=== PATIENT | male | born 1950 | race Caucasian/White ===

== ENCOUNTER 2016-09-02 10:32 | Inpatient (IN) | payer OTHER ==
[2016-09-02] VITALS (10 sets, daily range): BP systolic 136–186; BP diastolic 83–107; PULSE 65–78; RESP 19–25; O2SAT 79–92
[~2016-09-02] VITALS: Ht 165.1 cm; Wt 119.5 kg
--- NOTE | 2016-09-02 10:44 | ED.REPORT ---
HPI-Dyspnea / Wheezing Date of Service Sep 02, 2016 ED Provider: Christy Messina MD This is a 66 year old male with a history of DM, HTN, and COPD presenting to the emergency department due to dyspnea that began 2 weeks ago. Spouse reports decreased SpO2 in the 70s and 80s in the last two weeks. Saturation increases slightly if the patient is non-ambulatory but drops with even minimal exertion. Yesterday he began hallucinating with increased confusion which prompted their ED visit today. Denies chest pain, cough, fever, chills, nausea, vomiting cough , abdominal pain, bowel or bladder changes, or headache at this time. Recently on prednisone. Nursing Notes Stated Complaint: POSSIBLE LOW OXYGEN/SENT FROM [place] Chief Complaint: Respiratory Distress Nursing Notes Reviewed: Yes Allergies: Coded Allergies: Sulfa (Sulfonamide Antibiotics) (Verified Allergy, Unknown, 09/02/16) Scheduled Brimonidine Tartrate (Brimonidine 0.2% Oph Soln) 5 Ml Drops 1 DROP BOTH_EYES TID Fluocinonide 0.05% Oint (Fluocinonide 0.05% Oint) 15 Gm Oint...g. 1 APPLIC TOPICAL BID Fluoxetine (Fluoxetine) 20 Mg Capsule 20 MG PO DAILY Gabapentin (Gabapentin) 300 Mg Capsule 300 MG PO BID Insulin Aspart (NovoLOG U-100 Pen) 100 Unit/Ml Insuln.pen 18 UNITS SUBQ TIDWM Insulin Glargine (Lantus U100 Insulin Vial) 100 Unit/Ml Vial 65 UNIT SUBQ HS Ipratropium [place] (Atrovent HFA) 200 Puff/12.9 Gm Inhaler 2 PUFF INH BID Lisinopril (Lisinopril) 40 Mg Tablet 40 MG PO DAILY Loratadine (Claritin) 10 Mg Capsule 10 MG PO DAILY Metoprolol Succinate ER (Metoprolol Succinate ER) 100 Mg Tab.er.24h 150 MG PO DAILY Simvastatin (Simvastatin) 40 Mg Tablet 40 MG PO HS Spironolactone (Spironolactone) 50 Mg Tablet 50 MG PO DAILY Scheduled PRN Albuterol HFA (Proair HFA) 8.5 Gm Hfa.aer.ad 1-2 PUFFS INHALATION Q4H PRN PRN For Shortness of Breath Cetirizine HCl (Zyrtec) 10 Mg Capsule 10 MG PO DAILY PRN PRN allergies Temazepam (Temazepam) 15 Mg Capsule 15 MG PO HS PRN PRN For Insomnia Tramadol (Tramadol) 50 Mg Tablet 50 MG PO TID PRN PRN For Pain General Time Seen by MD: 10:44 Chief Complaint Shortness of breath Hx Obtained From: Patient Arrived By: Walk-in Sudden in Onset?: Yes Onset Occurred: More than a week ago... (2 weeks) Symptom Duration: Since onset Severity: Current: No pain currently Pertinent Negative: Pt denies other symptoms Recent Healthcare: No recent doctor visit, No recent hospitalization Similar Sx Previous: No Past Medical History Past Medical History Notes: Code, DNI Past Medical History Glaucoma Hx pneumonia Reports: COPD, Diabetes mellitus, Hypertension Past Surgical History Denies Smoking History Former Smoker Ambulatory Status Independent Review of Systems Constitutional: Denies: Chills, Fever Respiratory: Reports: Non-productive cough, Shortness of breath Cardiovascular: Denies: Chest pain Musculoskeletal: Denies: Back pain Skin: Denies Diaphoresis Complete sys rev & neg: except as marked. GI: Denies: Abdominal pain, Nausea, Vomiting Psychiatric: Reports: Confusion Physical Exam Initial Vital Signs Vital Signs (First) Date Time Temp Pulse Resp B/P Pulse Ox O2 Delivery O2 Flow Rate FiO2 09/02/16 10:41 36.5 69 20 168/107 79 Room Air 09/02/16 12:45 2 Initial VS: Reviewed Head / Eyes: Atraumatic, Normocephalic, PERRL ENT: Mucous membranes moist, Conjunctiva normal, No scleral icterus Extremities: Vascular intact, Neuro intact, No tenderness Neurologic: Alert, Oriented, Nonfocal General/Constitutional: Awake Neck: Atraumatic, Supple, No meningismus, Full range of motion, No swelling, Non-tender, No masses Wheezing / Retractions: Positive: Wheeze insp/exp diffuse poor air movement Cardiovascular: Heart rate NL, Regular rhythm, Heart sounds NL Lower Ext Edema: Positive: Bilateral 1+ (with poor perfusion chronically) Abdomen: Soft, Non-tender Obese Skin: Warm, Dry Multiple rashes and skin discoloration over entire body Significantly dystrophic toe nails Interpretation & Diagnostics Lab Results Interpretation Result Diagram: 09/03/16 0240 09/03/16 0240 Test 09/02/16 11:15 Pro-B-Type Natriuretic Peptide 7362pg/mL (0-376) Procalcitonin 0.11ng/mL (0.00-0.08) ECG Interpretation ECG Interpretation: NSR at a rate of 66 Inferior infarct, old Probably anterior infarct ST minimal elevation in V1-V4 with inverted t-waves. Changed from prior on 08/2014 Time: 11:31 Interpreted by: ED physician X-Ray Chest Interpretation Chest Xray Interpretation: IMPRESSION: No acute cardiopulmonary disease. Mild diffuse pulmonary interstitial prominence. Dictated by: Glory Hoang M.D. on 09/02/2016 at 11:43 Approved by: Glory Hoang M.D. on 09/02/2016 at 11:45 Re-Eval/Medical Decision Med Decision/Clinical Course Signficant progressive dyspnea with significant hypoxia in the setting of volume overload on CXR, increased LE edema and crackles/wheeze on lung exam and eleveted proBNP with elevated Trop all suggest acute CHF with possible STEMI vs demand ischemia. Hospitalization recommended. Re-Evaluation/Progress #1: Time of Eval: 11:20 Re-Evaluation/Progress Note: Re-checked, SpO2 97% on O2. Re-Evaluation/Progress #2: Time of Eval: 12:49 Re-Evaluation/Progress Note: Discussed need for admission, all questions addressed Consultation : Referral / Consult Name: Raymundo Lovell MD Consulted With: Hospitalist Call Returned at: 13:10 Dovetailer: Accepts admit Counseled Regarding: Diagnosis, Lab results, Need for follow-up, Need for admission Discharge & Departure Impression: Primary Impression: CHF (congestive heart failure) Congestive heart failure type: unspecified congestive heart failure type Congestive heart failure chronicity: unspecified congestive heart failure chronicity Qualified Code: I50.9 - Heart failure, unspecified Additional Impressions: NSTEMI (non-ST elevated myocardial infarction) COPD exacerbation Disposition: ADMITTED TO HOSPITAL Discharge Condition All VS Reviewed: Yes Condition: Stable Referrals: OTHER,PHYSICIAN (PCP) Scribe Attestation Portions of this note were transcribed by Panchito Allen. I, Dr. Messina personally performed the history, physical exam and medical decision-making; I reviewed and confirmed the accuracy of the information in the transcribed note. Signed by: shannen Dean. 09/02/2016, 18:00. Christy Mesisna MD Sep 02, 2016 10:44 PANCHITO ALLEN Sep 02, 2016 10:51 0.6mg/dL (0.0-1.2) Aspartate Amino Transf (AST/SGOT) 19U/L (0-50) Alanine Aminotransferase (ALT/SGPT) 14U/L (0-44) Alkaline Phosphatase 164U/L (25-160) Troponin T 0.021ug/L (0.0-0.011) Pro-B-Type Natriuretic Peptide 7362pg/mL (0-376) Total Protein 7.0g/dL (6.4-8.4) Albumin 3.8g/dL (3.4-5.0) Procalcitonin 0.11ng/mL (0.00-0.08) ECG Interpretation ECG Interpretation: NSR at a rate of 66 Inferior infarct, old Probably anterior infarct ST minimal elevation in V1-V4 with inverted t-waves. Changed from prior on 08/2014 Time: 11:31 Interpreted by: ED physician X-Ray Chest Interpretation Chest Xray Interpretation: IMPRESSION: No acute cardiopulmonary disease. Mild diffuse pulmonary interstitial prominence. Dictated by: Glory Hoang M.D. on 09/02/2016 at 11:43 Approved by: Glory Hoang M.D. on 09/02/2016 at 11:45 Re-Eval/Medical Decision Re-Evaluation/Progress #1: Time of Eval: 11:20 Re-Evaluation/Progress Note: Re-checked, SpO2 97% on O2. Re-Evaluation/Progress #2: Time of Eval: 12:49 Re-Evaluation/Progress Note: Discussed need for admission, all questions addressed Consultation : Referral / Consult Name: Raymundo Lovell MD Consulted With: Hospitalist Call Returned at: 13:10 Dovetailer: Accepts admit Counseled Regarding: Diagnosis, Lab results, Need for follow-up, Need for admission Discharge & Departure Impression: Primary Impression: CHF (congestive heart failure) Congestive heart failure type: unspecified congestive heart failure type Congestive heart failure chronicity: unspecified congestive heart failure chronicity Qualified Code: I50.9 - Heart failure, unspecified Additional Impressions: NSTEMI (non-ST elevated myocardial infarction) COPD exacerbation Disposition: ADMITTED TO HOSPITAL Discharge Condition All VS Reviewed: Yes Condition: Stable Referrals: OTHER,PHYSICIAN (PCP) Scribe Attestation Portions of this note were transcribed by Panchito Hutchinson IDr. Messina personally performed the history, physical exam and medical decision-making; I reviewed and confirmed the accuracy of the information in the transcribed note. Signed by: shannen Dean. 09/02/2016, 18:00. Christy Messina MD Sep 02, 2016 10:44 PANCHITO ALLEN Sep 02, 2016 10:51
[2016-09-02] MEDS ORDERED: MethylprednisoLONE Sodium Succinate 62.5 mg/mL 2 mL Inj IVPUSH ONE (11:15)
[2016-09-02] MEDS ORDERED: Albuterol-Ipratropium 3 mL Inhalation Solution NEB ONE (11:15)
[2016-09-02] MEDS ORDERED: Azithromycin Inj 500 MG in Dextrose 5% w/Vial Mate 250 ML IV ONE (11:15)
[2016-09-02] MEDS ORDERED: cefTRIAXone Inj 2,000 MG in Dextrose 5% Minibag Plus 50 ML IV ONE (11:15)
[2016-09-02 11:27] LABS: BASOPHILS % (AUTO) 0.2 % (0-3); EOSINOPHILS % (AUTO) 5.1 % (0-5); MONOCYTES % (AUTO) 8.3 % (4-12); Mean Corpuscular Hemoglobin 30.8 pg (27.0-35.0); Mean Corpuscular Volume 99.7 fL (81-100); NEUTROPHILS % (AUTO) 68.3 % (40-74); Platelet Count 234 bil/L (150-400)
--- NOTE | 2016-09-02 11:46 | DRSVH ---
PROCEDURE: X-RAY CHEST ONE VIEW, PORTABLE ([id number]) INDICATIONS: dyspnea TECHNIQUE: One view of the chest was acquired. COMPARISON: [facility], RG, CHEST 2VW, 08/25/2004, 13:23. [facility], CR, CH EST 2VW, 09/06/2009, 14:39. FINDINGS: Surgical changes and devices: None. Lungs and pleura: No pleural effusions or pneumothorax. Lungs are clear with mild diffuse interstit ial prominence. Mediastinum: Mediastinal contours appear normal. Heart size is normal. Bones and chest wall: No suspicious bony lesions. Overlying soft tissues appear unremarkable. IMPRESSION: No acute cardiopulmonary disease. Mild diffuse pulmonary interstitial prominence. Dictated by: Glory Hoang M.D. on 09/02/2016 at 11:43 Approved by: Glory Hoang M.D. on 09/02/2016 at 11:45
[2016-09-02] MEDS ORDERED: TRAM50TA2 PO (12:08)
[2016-09-02] MEDS ORDERED: FLUO20CA25 PO (12:08)
[2016-09-02] MEDS ORDERED: METO-274 PO (12:08)
[2016-09-02] MEDS ORDERED: SPIR50TA2 PO (12:08)
[2016-09-02] MEDS ORDERED: GABA-502 PO (12:08)
[2016-09-02] MEDS ORDERED: RES15 PO (12:08)
[2016-09-02] MEDS ORDERED: ALBU8.5H2 INHALATION (12:08)
[2016-09-02] MEDS ORDERED: LISI40TA PO (12:08)
[2016-09-02] MEDS ORDERED: LORA10CA PO (12:08)
[2016-09-02] MEDS ORDERED: CETI10CA PO (12:08)
[2016-09-02] MEDS ORDERED: INSU100V7 SUBQ (12:08)
[2016-09-02] MEDS ORDERED: ATRINH INH (12:08)
[2016-09-02] MEDS ORDERED: INSU3INS3 SUBQ ×2 (12:08)
[2016-09-02] MEDS ORDERED: FLUO15OI TOPICAL (12:08)
[2016-09-02] MEDS ORDERED: BRIM5DRO9 BOTH_EYES (12:08)
[2016-09-02] MEDS ORDERED: SIMV40TA5 PO (12:08)
[2016-09-02 12:14] LABS: TROPONIN T 0.021 ug/L (0.0-0.011)
[2016-09-02] MEDS ORDERED: Furosemide 10 mg/mL 4 mL Inj IVPUSH ONE (12:35)
[2016-09-02] MEDS ORDERED: INSU100I SUBQ (13:53)
[2016-09-02] MEDS ORDERED: Albuterol 2.5 mg/3 mL Inhalation Solution NEB PRN (14:10)
[2016-09-02] MEDS ORDERED: Polyethylene Glycol (PEG) 17 Gm Powder PO PRN (14:10)
[2016-09-02] MEDS ORDERED: Glucose 40% Oral Gel 15 Gm Tube PO PRN (14:10)
[2016-09-02] MEDS ORDERED: cefTRIAXone Inj 1,000 MG in Dextrose 5% Minibag Plus 50 ML IV SCH (14:10)
[2016-09-02] MEDS ORDERED: predniSONE 20 mg Tablet PO SCH (14:10)
[2016-09-02] MEDS ORDERED: Alum-Mag Hydrox-Simeth 30 mL Suspension PO PRN (14:10)
[2016-09-02] MEDS ORDERED: Ondansetron 2 mg/mL 2 mL Inj IVPUSH PRN (14:10)
--- NOTE | 2016-09-02 15:03 | PCM.HPMED ---
Subjective Date of Service Sep 02, 2016 Primary Provider: Admitting Physician: Raymundo Lovell MD Primary Care Phys[facility]: [facility] Attending Physician: Raymundo Lovell MD Admit Status: From the Emergency Department, Full Admit, Admit to [facility], [facility] Telemetry Chief Complaint: shortness of breath and cough, with hypoxia History of Present Illness: This is a 66-year-old gentleman with a history of COPD who does not take oxygen at home. He has been progressively short of breath over the last 4 weeks. He has had some minor rhinorrhea and dry cough. No orthopnea or chest pain. He has however had some edema of both legs evenly. Because of generalized fatigue and dyspnea on exertion the patient presented to the emergency room today. There he had evidence of acute hypoxia with saturations of 84% room air, as well as pulmonary edema on chest x-ray and a mildly elevated troponin. His EKG shows Q waves along the anterior leads however he denies any knowledge of CAD or heart attack. He is an insulin-dependent diabetic. No hemoptysis. No myalgia or arthralgia. Review of Systems: He does have hearing loss. Doses visual loss secondary to glaucoma. No fevers or chills. No hemoptysis. No palpitations. He has had some decreased appetite but no diarrhea constipation or blood per rectum. No hematuria or dysuria but his urine is darker. Also reviewed and otherwise negative except as noted on history of present illness Allergies Coded Allergies: Sulfa (Sulfonamide Antibiotics) (Verified Allergy, Unknown, 09/02/16) Home Medications Scheduled Albuterol HFA (Proair HFA) 8.5 Gm Hfa.aer.ad 2 PUFFS INHALATION Q4H Brimonidine Tartrate (Brimonidine 0.2% Oph Soln) 5 Ml Drops 1 DROP AFFECT_EYE BID Cetirizine HCl (Zyrtec) 10 Mg Capsule 10 MG PO HS Fluocinonide 0.05% Oint (Fluocinonide 0.05% Oint) 15 Gm Oint...g. 1 APPLIC TOPICAL BID Fluoxetine (Fluoxetine) 20 Mg Capsule 20 MG PO DAILY Gabapentin (Gabapentin) 300 Mg Capsule 300 MG PO BID Insulin Glargine (Lantus U100 Insulin Vial) 100 Unit/Ml Vial 65 UNIT SUBQ HS Insuln Asp Prt/Insulin Aspart (NovoLOG 70/30 U100 Insulin Flexpen) 100 Unit/Ml Unit 15 UNIT SUBQ BIDBL Insuln Asp Prt/Insulin Aspart (NovoLOG 70/30 U100 Insulin Flexpen) 100 Unit/Ml Unit 20 UNIT SUBQ DAILYWD Ipratropium [place] (Atrovent HFA) 200 Puff/12.9 Gm Inhaler 2 PUFF INH BID Lisinopril (Lisinopril) 40 Mg Tablet 40 MG PO DAILY Loratadine (Claritin) 10 Mg Capsule 10 MG PO DAILY Metoprolol Succinate ER (Metoprolol Succinate ER) 100 Mg Tab.er.24h 100 MG PO DAILY Simvastatin (Simvastatin) 40 Mg Tablet 40 MG PO HS Spironolactone (Spironolactone) 50 Mg Tablet 50 MG PO DAILY Scheduled PRN Temazepam (Temazepam) 15 Mg Capsule 15 MG PO HS PRN PRN For Insomnia Tramadol (Tramadol) 50 Mg Tablet 50 MG PO TID PRN PRN For Pain PMH 1. COPD, with a [id number] history. 2. Diabetes mellitus 2, insulin-dependent 3. Essential hypertension 4. Glaucoma Family History Positive for CAD Social History Occupation: retired Hx Alcohol Use: Yes (HX OF DRINKING WHEN YOUNGER) Hx Substance Use: No Hx Tobacco Use: Yes Smoking Status: Former Smoker Living Arrangement: with Family Exam Vital Signs Vital Sign - Last Date Time Temp Pulse Resp B/P Pulse Ox O2 Delivery O2 Flow Rate FiO2 09/02/16 14:46 37.0 69 153/92 88 Nasal Cannula 2.00 09/02/16 14:35 25 Exam He is hard of hearing. He is alert and oriented 3, fluent speech. No distress. Normal scalp. Normal nose and ears. Anicteric sclera, symmetric pupils Oropharynx unremarkable no droop Neck is supple normal thyroid, no adenopathy Lungs are essentially clear but have prolonged expectoration. Some expiratory wheezing. Heart is regular without murmur gallop or rub Abdomen is distended but nontender. Extremities a 2+ edema bilaterally. Skin is free of rash, lesions, ecchymosis. Strength Negative Form. Muscles with Normal Strength. Cranial Nerves Are Intact. Judgment Is Normal. Lab and Diagnostics Result Diagram: 09/02/16 1115 09/02/16 1115 X-Rays, CTs and MRIs Chest x-ray reveals pulmonary edema. 12-lead ECG ECG, no ST segment changes. Q waves in the septal leads and inferior leads. Assessment & Plan 1. Acute respiratory failure with hypoxia, POA. Pain is supplemental oxygen as needed. 2. Possible acute systolic heart failure, POA. We will begin diuresis with Lasix and obtain 2-D echo. We will also trend troponins. 3. Possible end STEMI, POA. We will beta blockade, to dual antiplatelets, and trend troponins. 4. Possible URI versus pneumonia, POA. Patient is given one dose of antibiotics in the ER nasal be continued. We will obtain blood cultures, strep pneumonia antigen as well as a dull respiratory PCR. 4. Diabetes no S2, POA. Usual regimen of Lantus 65 at bedtime and lispro 18 before meals plus correctional. 6. Obesity, POA. Patient is full resuscitation in contrast to the ED note and this was verified. He is admitted inpatient status, with a length of stay of over 2 nights. Pain Evaluation: Adequate Pain Control Resuscitation Status: CPR: Attempt Resuscitation Time spent 45 minutes Raymundo Lovell MD Sep 02, 2016 15:03
[2016-09-02] MEDS ORDERED: Furosemide 10 mg/mL 2 mL Inj IVPUSH ONE (15:05)
--- NOTE | 2016-09-02 15:12 | NUR ---
Admit to PCC Pt admitted to PCC room 2002. Report received from ED Nurse Ayesha. Pt transported by [facility], and was able to move self from gurney to bed. Pt is very pleasant and cooperating with all cares. Pt has patent IV in left AC, is on 2L NC with Sa02 88-91%. BP 153/92, HR 70. Pt has been oriented to room and is resting comfortably.
[2016-09-02] MEDS ORDERED: Heparin 5,000 Unit/mL Inj SUBQ SCH (16:30)
[2016-09-02 17:49] LABS: APPEARANCE,URINE CLEAR (CLEAR,HAZY); COLOR,URINE YELLOW (YELLOW); OCCULT BLOOD,URINE SMALL (NEGATIVE); PH,URINE 5.5 (5.0-8.0); UROBILINOGEN,URINE NORMAL (NORMAL)
[2016-09-02] MEDS: Insulin LISPRO 300 Unit/3 mL Inj SUBQ SCH ×2 (17:56→21:17)
[2016-09-02] MEDS: Tiotropium 18mcg/Cap 5 Capsule Inhaler Kit INHALATION SCH (17:58)
[2016-09-02] MEDS ORDERED: Insulin GLARgine 100 Unit/mL Syringe SUBQ SCH (21:00)
[2016-09-03] VITALS (9 sets, daily range): BP systolic 134–153; BP diastolic 79–94; PULSE 67–80; RESP 20–28; O2SAT 90–95
[2016-09-03 03:06] LABS: BASOPHILS % (AUTO) 0.1 % (0-3); EOSINOPHILS % (AUTO) 0.2 % (0-5); MONOCYTES % (AUTO) 6.6 % (4-12); Mean Corpuscular Hemoglobin 30.7 pg (27.0-35.0); Mean Corpuscular Volume 97.6 fL (81-100); NEUTROPHILS % (AUTO) 82.2 % (40-74); Platelet Count 244 bil/L (150-400)
--- NOTE | 2016-09-03 03:47 | NUR ---
Patient denies chest pain or SOB. Appears to be labored with breathing. Oxymask placed on patient for sleep to keep sats in low 90s. BG 411, 279 over night. Will continue to monitor.
[2016-09-03] MEDS: Insulin LISPRO 300 Unit/3 mL Inj SUBQ SCH ×4 (08:08→22:31)
[2016-09-03] MEDS: Tiotropium 18mcg/Cap 5 Capsule Inhaler Kit INHALATION SCH (08:09)
[2016-09-03] MEDS: Azithromycin Inj 500 MG in Dextrose 5% w/Vial Mate 250 ML IV SCH (08:14)
[2016-09-03] MEDS: Heparin 5,000 Unit/mL Inj SUBQ SCH ×2 (08:14→16:34)
[2016-09-03] MEDS: predniSONE 20 mg Tablet PO SCH (11:33)
[2016-09-03] MEDS ORDERED: Insulin GLARgine 100 Unit/mL Syringe SUBQ ONE ×2 (11:50→13:20)
[2016-09-03] MEDS ORDERED: 0.9% Sodium Chloride 500 ML IV ONE (11:50)
[2016-09-03] MEDS ORDERED: 0.9% Sodium Chloride 250 ML ONE (12:37)
[2016-09-03] MEDS: cefTRIAXone Inj 1,000 MG in Dextrose 5% Minibag Plus 50 ML IV SCH (12:43)
--- NOTE | 2016-09-03 13:15 | NUR ---
Called and spoke with Rosette in patient access at [facility], patient is 100 % service connected and holds MCR A&B. Updated ROAD MARKER
--- NOTE | 2016-09-03 13:24 | PCM.PNMED ---
Subjective Date of Service Sep 03, 2016 Subjective He feels a little better. Less shortness of breath. He has a dry cough. No fevers or chills. No chest pain. No abdominal pain nausea or diarrhea. He has ongoing leg edema. Exam Vital Signs Vital Sign - Last Date Time Temp Pulse Resp B/P Pulse Ox O2 Delivery O2 Flow Rate FiO2 09/03/16 11:53 37.0 76 26 134/79 90 Nasal Cannula 3.00 Intake and Output 09/02/16 09/02/16 09/03/16 Cumulative From/Thru 14:59 22:59 06:59 09/02/16 10:41 - 09/03/16 06:12 Intake Total 240 ml 300 ml 540 ml Output Total 1100 ml 300 ml 1400 ml Balance -860 ml 0 ml -860 ml Intake Oral 240 ml 300 ml 540 ml Output Urine Total 1100 ml 300 ml 1400 ml # Voids 1 1 Exam Alert oriented 3, no distress. Fluent speech. Anicteric sclerae. Neck supple. Lungs are clear with globally diminished breath sounds but reasonable expiratory phase. Heart is regular without murmur gallop or rub. Abdomen soft nontender Extremities with 2-3+ edema bilaterally Good radial pulse. Patient has a chronic erythematous papular rash over both arms which he attributes to agent orange. IVs and Medications Medications Reviewed: Medications were reviewed in detail Lab and Diagnostics Result Diagram: 09/03/16 0240 09/03/16 0240 X-Rays, CTs and MRIs Chest x-ray reveals pulmonary edema. 12-lead ECG ECG, no ST segment changes. Q waves in the septal leads and inferior leads. Assessment & Plan 1. Acute respiratory failure with hypoxia, POA. Pain is supplemental oxygen as needed. The specific etiology remains unclear. Today we will obtain a 2-D echo to rule out acute systolic heart failure. In addition I have believe it is possible that he does have chronic lung disease as a contributing factor. 2. Possible acute systolic heart failure, POA. We will begin diuresis with Lasix and obtain 2-D echo. We will also trend troponins. 3. Possible end STEMI, POA. We will beta blockade, to dual antiplatelets, and trend troponins. These remain slightly elevated. We will continue to follow his troponins and review his echo. There is no clear history of coronary artery disease. His EKG does have septal Q waves consistent with possible previous cardiovascular events. His clinical course and may require more in depth risk stratification testing. 4. Possible URI versus pneumonia, POA. His adult respiratory PCR is negative. We will repeat his chest x-ray again continue treating him with antibiotics empirically. 5. One positive blood culture, which may represent contaminant versus septicemia pending on following cultures. No change antibiotics. 6. Diabetes 2, POA. Usual regimen is Lantus 65 at bedtime and lispro 18 before meals plus correctional. The patient is very hyperglycemic. We will add an additional 10 of Lantus at this time and increase his at bedtime Lantus to 70 . 6. Obesity, POA. 7. Acute renal failure on probable chronic kidney disease, stage unclear. ANTONETTE. We will at this point. Diuresis as he appears to have worsened. We will likely give her 500 sealing back. We will follow his urine output closely. 8. Hyperkalemia, not present on admission. This appears related to diuresis and likely the patient cannot tolerate much in terms of diuresis. We will use Kayexalate 1 and follow closely. Patient is full resuscitation in contrast to the ED note and this was verified. He is admitted inpatient status, with a length of stay of over 2 nights. Pain Evaluation: Adequate Pain Control Resuscitation Status: CPR: Attempt Resuscitation Time spent 40 minute Raymundo Lovell MD Sep 03, 2016 13:24
--- NOTE | 2016-09-03 14:00 | NUR ---
Social Work Note: Initial Assessment Data& Assessment: EMR reviewed. SW met with pt and pt daughter Veronique at bedside to discuss discharge planning, SW role explained. Lex Alfredo is a 66 year old male admitted on 09/02/2016 for CHF Acute, Non stemi, COPD. Pt has Medicare part A & B insurance coverage as well as [facility]. Pt is 100% [facility] with [facility]. [facility] [place] [facility] [place] [facility] [place] for [place]. Pt lives in [place] with his and is independent at baseline. Pt lives in a one story home with three steps to enter the home. Pt uses a cane when leaving the home. Pt is requiring oxygen at this time but does not normally require it at home. Pt explained he used a concentrator when he lived in [facility]. Pt denies HH or SNF hx. Pt denies LTC insurance. Pt provided with DPOA/Advance Directive paperwork to review and complete when medically ready. SW provided SW phone number on pt white board. Pt and pt daughter deny any other needs at this time. SW to continue to follow if any needs arise. Plan: Anticipated discharge home when medically ready. SW to continue to follow for MD, PT and RT evaluation and recommendations. Pt and pt daughter deny any other needs at this time. SW to continue to follow if any needs arise. ADITYA Ingram Addendum: 09/03/16 at 1405 by BOWEN GRAVES Amended: Links added.
--- NOTE | 2016-09-03 14:20 | DRSVH ---
[facility] [address] [place] [address] Echocardiogram Report Name: ROXIE GENTILE EStudy Date: 09/03/2016 Height: 65 in Hospital Exam Location: [facility] Weight: 275 lb Gender: Male BSA: 2.3 m2 : 1950 Age: 66 yrs BP: 153/88 mmHg Reason For Study: Dyspnea Ordering Physician: Performed By: Andie Gregg Referring Physician: [facility] Interpretation Summary 1) Mild concentric left ventricular hypertrophy with normal size, wall motion, and systolic function (EF 65-70%). 2) Mildly dilated right ventricle with mildly reduced function. The distal free wall of the right ventricle appears hypokinetic, which could be pham sign that is seen in pulmonary embolism but pulmonary pressures are not elevated on this Echo. Correlate clinically. 3) Valves not well visualized but no significant valvular abnormalities noted. 4) High normal pulmonary artery pressures, estimated systolic pulmonary pressure of 34mmHg. 5) No prior Echo available for comparison. Procedure: A two-dimensional transthoracic echocardiogram with color flow and Doppler was performed. The study quality was technically difficult. There is no prior echocardiogram noted for this patient. A contrast injection of Definity was performed to improve assessment of LV function. The patient did well with the contrast. The patient was in normal sinus rhythm during the exam. Left Ventricle: The left ventricle is normal in size. There is mild concentric left ventricular hypertrophy. The ejection fraction is estimated to be 65-70%. There are no obvious focal wall motion abnormalities noted but poor endocardial definition reduces the sensitivity for the detection of such. Assessment of diastolic parameters indicates a relaxation abnormality of the left ventricle, consistent with normal filling pressures. Right Ventricle: The right ventricle is mildly dilated. Right ventricular systolic function is mildly reduced. Atria: Both atria are normal in size. Mitral Valve: The mitral valve is grossly normal. Aortic Valve: The aortic valve is grossly normal. There is no aortic valve stenosis. No aortic regurgitation is present. Tricuspid Valve: The tricuspid valve is not well visualized, but is grossly normal. There is a trace or physiologic amount of tricuspid regurgitation. The right ventricular systolic pressure is estimated at 34 mmHg assuming a right atrial pressure of 3 mm Hg. Pulmonic Valve: The pulmonic valve is not well visualized. Great Vessels: The aortic root is normal size. The ascending aorta is at the upper limits of normal in size. The IVC is of normal diameter and collapses greater than 50% with a sniff. This suggests a low right atrial pressure of 3 mm Hg. Pericardium/ Pleura There is no pericardial effusion. MMode/2D Measurements & Calculations LVIDd: 4.2 cm RA long axis Ao root diam LVIDs: 2.5 cm LA A2 area: 15.5 cm FS: 39.8 % LA A4 area: 19.2 cm RA area asc Aorta EPSS: 0.62 cm LA length (vol): 5.7 cm Diam: 3.8 cm IVSd: 1.1 cm LA vol: 44.3 ml : 18.1 cm LVPWd: 1.0 cm LA vol index RA vol: 46.4 ml RA : 20.5 mm2 IVC diam: 1.4 cm LV herrera. diameter/BSA LV sys. diameter/BSA RVD1 (basal) TAPSE: 2.3 cm (cm/m^2): 1.8 (cm/m^2): 1.1 Doppler Measurements & Calculations Ao V2 max MV E max gilbert MV E/A: 0.51 TR max gilbert : 142.1 cm/sec : 44.4 cm/sec Med Peak E' Gilbert : 280.3 cm/sec Ao max P.1 mmHgMV A max gilbert TR max PG Ao mean PG : 87.4 cm/sec E/E' med: 9.2 : 31.4 mmHg MV P1/2t: 92.2 msec MV A dur: 0.13 sec PA V2 max LVOT Max Gilbert : 100.8 cm/sec : 122.8 cm/sec PA mean PG sev ratio: 0.87 PA Accel Time : 0.10 sec MV dec time MV P1/2t max gilbert Ao V2 mean LV V1 max PG : 0.31 sec : 107.8 cm/sec Ao V2 VTI: 31.9 cm LV V1 VTI: 27.6 cm MVA(P1/2t): 2.4 cm2 PA V2 mean : 65.4 cm/sec Reading Physician:02:20 PM
[2016-09-03] MEDS: Ipratropium 0.02% 0.5 mg/2.5 mL Inhalation Solution NEB SCH ×2 (15:30→20:30)
[2016-09-03] MEDS ORDERED: Albuterol 2.5 mg/3 mL Inhalation Solution NEB PRN (16:00)
--- NOTE | 2016-09-03 18:17 | NUR ---
Oxygen/Sats/Blood Sugar Pt oxygen @ 2L NC when awake, Pt will desat to mid to high 80s when sleeping. Switched to oxymask and increased O2 to 3L when napping. Pt blood sugars today 264, 271. 222, extra dose of 10 units Lantus given mid shift. Pt started on prednisone today.
[2016-09-03] MEDS: Insulin GLARgine 100 Unit/mL Syringe SUBQ SCH (20:15)
[2016-09-03] MEDS: Brimonidine 0.2% 5 mL Ophthalmic Solution BOTH_EYES SCH (20:16)
--- NOTE | 2016-09-03 23:16 | NUR ---
Resp Pt denies SOB Able to sleep with nasal canula in place (last night he required an oxymask). No desat. Will cont to monitor
[2016-09-04] VITALS (9 sets, daily range): BP systolic 123–164; BP diastolic 75–91; PULSE 77–100; RESP 18–22; O2SAT 89–95
[2016-09-04] MEDS: Heparin 5,000 Unit/mL Inj SUBQ SCH ×4 (00:48→23:33)
[2016-09-04] MEDS: Insulin LISPRO 300 Unit/3 mL Inj SUBQ SCH ×4 (08:00→20:39)
[2016-09-04] MEDS: Ipratropium 0.02% 0.5 mg/2.5 mL Inhalation Solution NEB SCH ×2 (08:08→19:44)
[2016-09-04] MEDS: Tiotropium 18mcg/Cap 5 Capsule Inhaler Kit INHALATION SCH (08:30)
[2016-09-04] MEDS: Azithromycin Inj 500 MG in Dextrose 5% w/Vial Mate 250 ML IV SCH (08:53)
[2016-09-04] MEDS: Brimonidine 0.2% 5 mL Ophthalmic Solution BOTH_EYES SCH ×3 (08:54→20:42)
[2016-09-04] MEDS: predniSONE 20 mg Tablet PO SCH (08:55)
[2016-09-04] MEDS: cefTRIAXone Inj 1,000 MG in Dextrose 5% Minibag Plus 50 ML IV SCH (11:22)
[2016-09-04] MEDS ORDERED: Glucose 40% Oral Gel 15 Gm Tube PO PRN (12:50)
--- NOTE | 2016-09-04 13:03 | PCM.PNMED ---
Subjective Date of Service Sep 04, 2016 Subjective Patient is currently eating lunch. He is on O2 by nasal cannula does not use this at home. He denies any chest pain at this time. does complain of some lower extremity swelling. Exam Vital Signs Vital Sign - Last Date Time Temp Pulse Resp B/P Pulse Ox O2 Delivery O2 Flow Rate FiO2 09/04/16 12:31 84 09/04/16 11:49 37.5 20 162/83 93 Nasal Cannula 3.00 Intake and Output 09/03/16 09/03/16 09/04/16 Cumulative From/Thru 14:59 22:59 06:59 09/02/16 10:41 - 09/04/16 05:02 Intake Total 1650 ml 750 ml 2940 ml Output Total 800 ml 100 ml 2300 ml Balance 850 ml 650 ml 640 ml Intake Oral 850 ml 750 ml 2140 ml IV Total 800 ml 800 ml Output Urine Total 800 ml 100 ml 2300 ml # Voids 1 2 # Bowel Movements 1 0 1 Exam Constitutional: Elderly man in no acute distress Head: Normocephalic atraumatic Chest: Some scattered wheezes noted Cor: Regular rate and rhythm S1-S2 Abdomen: Soft nontender bowel sounds present Extremities: Trace bilateral pedal edema Neuro: Alert and oriented 3, motor strength is intact bilaterally IVs and Medications Medications Reviewed: Medications were reviewed in detail Lab and Diagnostics Laboratory Tests 72 Hours Test 09/02/16 11:15 09/02/16 15:00 09/02/16 16:22 09/03/16 02:40 White Blood Count 10.0th/mm3 (3.8-10.1) 10.4th/mm3 (3.8-10.1) Red Blood Count 5.88mil/mm3 (4.40-5.80) 5.89mil/mm3 (4.40-5.80) Hemoglobin 18.1g/dL (13.8-17.2) 18.1g/dL (13.8-17.2) Hematocrit 58.6% (41.0-50.0) 57.5% (41.0-50.0) Mean Corpuscular Volume 99.7fL (81-100) 97.6fL (81-100) Mean Corpuscular Hemoglobin 30.8pg (27.0-35.0) 30.7pg (27.0-35.0) Mean Corpuscular Hemoglobin Concent 30.9% (32.0-37.0) 31.5% (32.0-37.0) Red Cell Distribution Width 16.8% (12.3-15.4) 16.4% (12.3-15.4) Platelet Count 234bil/L (150-400) 244bil/L (150-400) Neutrophils (%) (Auto) 68.3% (40-74) 82.2% (40-74) Lymphocytes (%) (Auto) 17.9% (14-46) 10.7% (14-46) Monocytes (%) (Auto) 8.3% (4-12) 6.6% (4-12) Eosinophils (%) (Auto) 5.1% (0-5) 0.2% (0-5) Basophils (%) (Auto) 0.2% (0-3) 0.1% (0-3) Sodium Level 137mEq/L (134-144) 137mEq/L (134-144) Potassium Level 4.9mEq/L (3.5-5.2) 5.9mEq/L (3.5-5.2) Chloride Level 94mEq/L (97-108) 94mEq/L (97-108) Carbon Dioxide Level 29mmol/L (18-29) 27mmol/L (18-29) Blood Urea Nitrogen 30mg/dL (8-27) 41mg/dL (8-27) Creatinine 1.51mg/dL (0.76-1.27) 1.84mg/dL (0.76-1.27) Estimat Glomerular Filtration Rate 49mL/min (>59) 39mL/min (>59) Glucose Level 181mg/dL (60-99) 357mg/dL (60-99) Hemoglobin A1c 9.7% (4.8-5.6) Calcium Level 9.2mg/dL (8.5-10.1) 8.7mg/dL (8.5-10.1) Total Bilirubin 0.6mg/dL (0.0-1.2) 0.4mg/dL (0.0-1.2) Aspartate Amino Transf (AST/SGOT) 19U/L (0-50) 29U/L (0-50) Alanine Aminotransferase (ALT/SGPT) 14U/L (0-44) 18U/L (0-44) Alkaline Phosphatase 164U/L (25-160) 170U/L (25-160) Troponin T 0.021ug/L (0.0-0.011) 0.012ug/L (0.0-0.011) Pro-B-Type Natriuretic Peptide 7362pg/mL (0-376) Total Protein 7.0g/dL (6.4-8.4) 6.4g/dL (6.4-8.4) Albumin 3.8g/dL (3.4-5.0) 3.6g/dL (3.4-5.0) Procalcitonin 0.11ng/mL (0.00-0.08) Urine Color Yellow (YELLOW) Urine Appearance Clear (CLEAR,HAZY) Urine pH 5.5 (5.0-8.0) Urine Specific [place] 1.015 (1.003-1.035) Urine Protein 30mg/dL (NEG,TRACE) Urine Glucose (UA) 500mg/dL (NEGATIVE) Urine Ketones Negativemg/dL (NEGATIVE) Urine Occult Blood Small (NEGATIVE) Urine Nitrite Negative (NEGATIVE) Urine Bilirubin Negative (NEGATIVE) Urine Urobilinogen Normalmg/dL (NORMAL) Urine Leukocyte Esterase Negative (NEGATIVE) Urine RBC 0-2/hpf (0-2) Urine WBC 0-5/hpf (0-5) Urine Epithelial Cells Few/hpf (NONE-MOD) Urine Crystals None seen (NONE SEEN) Urine Bacteria Few/hpf (NONE-FEW) Urine Hyaline Casts None/lpf (NONE) Urine Granular Casts None seen (NONE SEEN) Urine Waxy Casts None seen (NONE SEEN) Urine Red Blood Cell Casts None seen (NONE SEEN) Urine White Blood Cell Casts None seen (NONE SEEN) Urine Mucus None seen (None Seen) Urine Trichomonas None seen (NONE SEEN) Urine Yeast None (NONE SEEN) Urinalysis Comment None Urine Culture Reflexed Not indicated Triglycerides Level 117mg/dL (0-149) Cholesterol Level 192mg/dL (100-199) LDL Cholesterol, Calculated 137.600mg/dL (0-99) VLDL Cholesterol 23.400mg/dL HDL Cholesterol 31mg/dL (>39) Cholesterol/HDL Ratio 6.19 (0.0-4.4) Test 09/03/16 16:07 Sodium Level 136mEq/L (134-144) Potassium Level 5.0mEq/L (3.5-5.2) Chloride Level 96mEq/L (97-108) Carbon Dioxide Level 25mmol/L (18-29) Blood Urea Nitrogen 44mg/dL (8-27) Creatinine 1.76mg/dL (0.76-1.27) Estimat Glomerular Filtration Rate 41mL/min (>59) Glucose Level 257mg/dL (60-99) Calcium Level 8.5mg/dL (8.5-10.1) Result Diagram: 09/03/16 0240 09/03/16 1607 X-Rays, CTs and MRIs Chest x-ray reveals pulmonary edema. 12-lead ECG ECG, no ST segment changes. Q waves in the septal leads and inferior leads. Cardiac Echo Impressions Echocardiogram Report Name: ROXIE GENTILE EStudy Date: 09/03/2016 Height: 65 in Hospital Exam Location: [facility] Weight: 275 lb Gender: Male BSA: 2.3 m2 : 1950 Age: 66 yrs BP: 153/88 mmHg Reason For Study: Dyspnea Ordering Physician: Performed By: Andie Gregg Referring Physician: [facility] Interpretation Summary 1) Mild concentric left ventricular hypertrophy with normal size, wall motion, and systolic function (EF 65-70%). 2) Mildly dilated right ventricle with mildly reduced function. The distal free wall of the right ventricle appears hypokinetic, which could be pham sign that is seen in pulmonary embolism but pulmonary pressures are not elevated on this Echo. Correlate clinically. 3) Valves not well visualized but no significant valvular abnormalities noted. 4) High normal pulmonary artery pressures, estimated systolic pulmonary pressure of 34mmHg. 5) No prior Echo available for comparison. Procedure: A two-dimensional transthoracic echocardiogram with color flow and Doppler was performed. The study quality was technically difficult. There is no prior echocardiogram noted for this patient. A contrast injection of Definity was performed to improve assessment of LV function. The patient did well with the contrast. The patient was in normal sinus rhythm during the exam. Left Ventricle: The left ventricle is normal in size. There is mild concentric left ventricular hypertrophy. The ejection fraction is estimated to be 65-70%. There are no obvious focal wall motion abnormalities noted but poor endocardial definition reduces the sensitivity for the detection of such. Assessment of diastolic parameters indicates a relaxation abnormality of the left ventricle, consistent with normal filling pressures. Right Ventricle: The right ventricle is mildly dilated. Right ventricular systolic function is mildly reduced. Atria: Both atria are normal in size. Mitral Valve: The mitral valve is grossly normal. Aortic Valve: The aortic valve is grossly normal. There is no aortic valve stenosis. No aortic regurgitation is present. Tricuspid Valve: The tricuspid valve is not well visualized, but is grossly normal. There is a trace or physiologic amount of tricuspid regurgitation. The right ventricular systolic pressure is estimated at 34 mmHg assuming a right atrial pressure of 3 mm Hg. Pulmonic Valve: The pulmonic valve is not well visualized. Great Vessels: The aortic root is normal size. The ascending aorta is at the upper limits of normal in size. The IVC is of normal diameter and collapses greater than 50% with a sniff. This suggests a low right atrial pressure of 3 mm Hg. Pericardium/ Pleura There is no pericardial effusion. MMode/2D Measurements & Calculations LVIDd: 4.2 cm RA long axis Ao root diam LVIDs: 2.5 cm LA A2 area: 15.5 cm FS: 39.8 % LA A4 area: 19.2 cm RA area asc Aorta EPSS: 0.62 cm LA length (vol): 5.7 cm Diam: 3.8 cm IVSd: 1.1 cm LA vol: 44.3 ml : 18.1 cm LVPWd: 1.0 cm LA vol index RA vol: 46.4 ml RA : 20.5 mm2 IVC diam: 1.4 cm LV herrera. diameter/BSA LV sys. diameter/BSA RVD1 (basal) TAPSE: 2.3 cm (cm/m^2): 1.8 (cm/m^2): 1.1 Doppler Measurements & Calculations Ao V2 max MV E max gilbert MV E/A: 0.51 TR max gilbert : 142.1 cm/sec : 44.4 cm/sec Med Peak E' Gilbert : 280.3 cm/sec Ao max P.1 mmHgMV A max gilbert TR max PG Ao mean PG : 87.4 cm/sec E/E' med: 9.2 : 31.4 mmHg MV P1/2t: 92.2 msec MV A dur: 0.13 sec PA V2 max LVOT Max Gilbert : 100.8 cm/sec : 122.8 cm/sec PA mean PG sev ratio: 0.87 PA Accel Time : 0.10 sec MV dec time MV P1/2t max gilbert Ao V2 mean LV V1 max PG : 0.31 sec : 107.8 cm/sec Ao V2 VTI: 31.9 cm LV V1 VTI: 27.6 cm MVA(P1/2t): 2.4 cm2 PA V2 mean : 65.4 cm/sec Reading Physician:02:20 PM Assessment & Plan 1. Acute respiratory failure with hypoxia, POA. Pain is supplemental oxygen as needed. The specific etiology remains unclear. In addition I have believe it is possible that he does have chronic lung disease as a contributing factor. Could be secondary to COPD exacerbation or possible pneumonia which is being covered with IV Rocephin and IV azithromycin for possible diastolic acute dysfunction given EF is normal on echocardiogram. Patient is improving clinically 2. Possible acute diastolic heart failure, POA. We will begin diuresis with Lasix. We will also trend troponins. 3. Possible NSTEMI, POA. We will beta blockade, to dual antiplatelets, and trend troponins. These remain slightly elevated. We will continue to follow his troponins. There is no clear history of coronary artery disease. His EKG does have septal Q waves consistent with possible previous cardiovascular events. His clinical course and may require more in depth risk stratification testing. 4. Possible URI versus pneumonia, POA. His adult respiratory PCR is negative. We will repeat his chest x-ray again continue treating him with antibiotics empirically. 5. One positive blood culture, which may represent contaminant versus septicemia pending on following cultures. No change antibiotics. 6. Diabetes 2, POA. Usual regimen is Lantus 65 at bedtime and lispro 18 before meals plus correctional. The patient is very hyperglycemic. We will add an additional 10 of Lantus at this time and increase his at bedtime Lantus to 70 . Did review with patient and that he did have an elevated hemoglobin A1c and did have poor control while he was at home also. 6. Obesity, POA. 7. Acute renal failure on probable chronic kidney disease, stage unclear. ANTONETTE. Improved today. 8. Hyperkalemia, not present on admission. Currently resolved but we will continue to monitor. Patient is full resuscitation in contrast to the ED note and this was verified. He is admitted inpatient status, with a length of stay of over 2 nights. Resuscitation Status: CPR: Attempt Resuscitation Time spent 30 minutes Jacquie Sharpe MD Sep 04, 2016 13:03
[2016-09-04] MEDS: Furosemide 10 mg/mL 4 mL Inj IVPUSH SCH (14:27)
--- NOTE | 2016-09-04 15:15 | NUR ---
Evaluation completed. Please go to "Notes" then click on "Assessments and Notes" (bottom left corner of screen). Then select appropriate discipline tab on top of screen.
--- NOTE | 2016-09-04 16:12 | NUR ---
Respiratory- Patient denies shortness of breath, but does appear to have increased work of breathing during activity. Tolerated sitting up in chair. O2 on at 3 liters to maintain Spo2 89-94% Occasional dry,unproductive cough. Diuresing after IV Lasix dose given. [id number].
[2016-09-04] MEDS: Nystatin 100,000 Unit/Gm 15 Gm Powder TOPICAL SCH (19:38)
[2016-09-04] MEDS: Insulin GLARgine 100 Unit/mL Syringe SUBQ SCH (20:38)
--- NOTE | 2016-09-04 21:17 | NUR ---
Oxygen Pt continually has nasal canula NOT in his nose. Placed on 4 L oxymask to maintain sats at 92%. Denies SOB. Lungs are decreased with faint wheezes. Will cont to monitor
[2016-09-05] VITALS (15 sets, daily range): BP systolic 150–200; BP diastolic 82–108; PULSE 73–107; RESP 20–30; O2SAT 91–96
--- NOTE | 2016-09-05 03:28 | NUR ---
Dyspnea/Febrile Pt has increased work of breathing. RR 28-30. Breath sounds are significantly diminished. Temp is 38.4C Pt has no current complaints. Requested neb trx for pt due to dyspnea. Will cont to monitor
--- NOTE | 2016-09-05 03:51 | ABG ---
DateTimeAnalyzed 03:49:00 -_ pH ____7.248 - 7.350 7.450 pCO2 ___88.4__ -mmHg 35.0 45.0 pO2 ___69.7__ -mmHg 69.0 116 HCO3- ___37.2__ -mmol/L 22.0 26.0 ABE ____5.3__ -mmol/L -2.0 2.0 tHb ___17.6__ -g/dL O2Hb ___89.1__ -% COHb ____1.3__ -% MetHb ____0.9__ -% sO2 ___91.1__ -% 25.0 FIO2 ___21.0__ -% Drawn By MD - Date/Time Notified____ 03:51:00 -_ Liter_Flow ____4.0__ -L/min Oxygen Device 1 __OXYMASK - Notified By MD - Notified Whom RN J.JOSE JUAN - B 758 -mmHg tO2 ___22.0__ -Vol% OrderingPhysicianInitials mf - Raymundo test _Positive -
--- NOTE | 2016-09-05 03:53 | NUR ---
Tremulous RT noted that pt appeared tremulous and mildly sleepy. Requested ABG due to possible CO2 retention. Pt is able to answer questions appropriately. Awakens to voice then returns to sleep. Oxygen decreased to 3L per oxymask Willcont to monitor
--- NOTE | 2016-09-05 03:58 | NUR ---
ABG results reported to
--- NOTE | 2016-09-05 04:15 | NUR ---
Bipap initiated Pt started on bipap per RT and M Tolerates. RT plans to draw a 2nd ABG at 0600.
--- NOTE | 2016-09-05 05:52 | NUR ---
Mentation Pt easily awakens to voice. Able to answer questions appropriately. Will cont to monitor
--- NOTE | 2016-09-05 06:40 | ABG ---
DateTimeAnalyzed 06:37:00 -_ pH ____7.303 - 7.350 7.450 pCO2 ___75.4__ -mmHg 35.0 45.0 pO2 ___71.7__ -mmHg 69.0 116 HCO3- ___36.2__ -mmol/L 22.0 26.0 ABE ____6.4__ -mmol/L -2.0 2.0 tHb ___17.0__ -g/dL O2Hb ___91.2__ -% COHb ____1.4__ -% MetHb ____0.9__ -% sO2 ___93.3__ -% 25.0 FIO2 ___45.0__ -% Pressure_Support ___12.0__ -cmH2O PEEP ____8.0__ -cmH2O Drawn By MD - Date/Time Notified____ 06:40:00 -_ Spontaneous_RR ___21.0__ -b/min Oxygen Device 1 ____BIPAP - Notified By MD - Notified Whom RN J.JOSE JUAN - B 759 -mmHg tO2 ___21.7__ -Vol% Raymundo test _Positive -
[2016-09-05] MEDS: Insulin LISPRO 300 Unit/3 mL Inj SUBQ SCH ×4 (09:00→21:06)
[2016-09-05] MEDS: Azithromycin Inj 500 MG in Dextrose 5% w/Vial Mate 250 ML IV SCH (09:00)
[2016-09-05] MEDS: predniSONE 20 mg Tablet PO SCH (09:01)
[2016-09-05] MEDS: Furosemide 10 mg/mL 4 mL Inj IVPUSH SCH ×2 (09:01→20:04)
[2016-09-05] MEDS: Tiotropium 18mcg/Cap 5 Capsule Inhaler Kit INHALATION SCH (09:02)
[2016-09-05] MEDS: Nystatin 100,000 Unit/Gm 15 Gm Powder TOPICAL SCH ×2 (09:02→19:57)
[2016-09-05] MEDS: Brimonidine 0.2% 5 mL Ophthalmic Solution BOTH_EYES SCH ×3 (09:02→19:58)
[2016-09-05] MEDS: Heparin 5,000 Unit/mL Inj SUBQ SCH ×2 (09:05→16:30)
[2016-09-05] MEDS: cefTRIAXone Inj 1,000 MG in Dextrose 5% Minibag Plus 50 ML IV SCH (12:09)
[2016-09-05] MEDS ORDERED: Albuterol 2.5 mg/3 mL Inhalation Solution NEB PRN (15:55)
--- NOTE | 2016-09-05 16:04 | PCM.PNMED ---
Subjective Date of Service Sep 05, 2016 Subjective Patient is resting at bedside. He still does visibly have some dyspnea with wheezing. Exam Vital Signs Vital Sign - Last Date Time Temp Pulse Resp B/P Pulse Ox O2 Delivery O2 Flow Rate FiO2 09/05/16 13:55 78 24 93 09/05/16 13:10 Mask 3.00 09/05/16 11:58 37.0 151/91 09/05/16 09:40 45 Intake and Output 09/04/16 09/04/16 09/05/16 Cumulative From/Thru 15:00 23:00 07:00 09/02/16 10:41 - 09/05/16 04:48 Intake Total 590 ml 200 ml 3730 ml Output Total 1800 ml 400 ml 4500 ml Balance -1210 ml -200 ml -770 ml Intake Oral 590 ml 200 ml 2930 ml IV Total 800 ml Output Urine Total 1800 ml 400 ml 4500 ml # Voids 2 # Bowel Movements 0 1 Exam Intake and Output 09/04/16 09/04/16 09/05/16 Cumulative From/Thru 15:00 23:00 07:00 09/02/16 10:41 - 09/05/16 04:48 Intake Total 590 ml 200 ml 3730 ml Output Total 1800 ml 400 ml 4500 ml Balance -1210 ml -200 ml -770 ml Intake Oral 590 ml 200 ml 2930 ml IV Total 800 ml Output Urine Total 1800 ml 400 ml 4500 ml # Voids 2 # Bowel Movements 0 1 Constitutional: Elderly male who is resting comfortably but does have some wheezing audibly Head: Normocephalic atraumatic Chest: Diffuse expiratory wheezes anteriorly and decreased breath sounds posteriorly Cor: Regular rate and rhythm S1-S2 Abdomen: Soft nontender bowel sounds present Extremities: Trace bilateral pedal edema Lab and Diagnostics Laboratory Tests 72 Hours Test 09/02/16 16:22 09/03/16 02:40 09/03/16 16:07 09/05/16 04:00 Urine Color Yellow (YELLOW) Urine Appearance Clear (CLEAR,HAZY) Urine pH 5.5 (5.0-8.0) Urine Specific [place] 1.015 (1.003-1.035) Urine Protein 30mg/dL (NEG,TRACE) Urine Glucose (UA) 500mg/dL (NEGATIVE) Urine Ketones Negativemg/dL (NEGATIVE) Urine Occult Blood Small (NEGATIVE) Urine Nitrite Negative (NEGATIVE) Urine Bilirubin Negative (NEGATIVE) Urine Urobilinogen Normalmg/dL (NORMAL) Urine Leukocyte Esterase Negative (NEGATIVE) Urine RBC 0-2/hpf (0-2) Urine WBC 0-5/hpf (0-5) Urine Epithelial Cells Few/hpf (NONE-MOD) Urine Crystals None seen (NONE SEEN) Urine Bacteria Few/hpf (NONE-FEW) Urine Hyaline Casts None/lpf (NONE) Urine Granular Casts None seen (NONE SEEN) Urine Waxy Casts None seen (NONE SEEN) Urine Red Blood Cell Casts None seen (NONE SEEN) Urine White Blood Cell Casts None seen (NONE SEEN) Urine Mucus None seen (None Seen) Urine Trichomonas None seen (NONE SEEN) Urine Yeast None (NONE SEEN) Urinalysis Comment None Urine Culture Reflexed Not indicated White Blood Count 10.4th/mm3 (3.8-10.1) Red Blood Count 5.89mil/mm3 (4.40-5.80) Hemoglobin 18.1g/dL (13.8-17.2) Hematocrit 57.5% (41.0-50.0) Mean Corpuscular Volume 97.6fL (81-100) Mean Corpuscular Hemoglobin 30.7pg (27.0-35.0) Mean Corpuscular Hemoglobin Concent 31.5% (32.0-37.0) Red Cell Distribution Width 16.4% (12.3-15.4) Platelet Count 244bil/L (150-400) Neutrophils (%) (Auto) 82.2% (40-74) Lymphocytes (%) (Auto) 10.7% (14-46) Monocytes (%) (Auto) 6.6% (4-12) Eosinophils (%) (Auto) 0.2% (0-5) Basophils (%) (Auto) 0.1% (0-3) Sodium Level 137mEq/L (134-144) 136mEq/L (134-144) Potassium Level 5.9mEq/L (3.5-5.2) 5.0mEq/L (3.5-5.2) Chloride Level 94mEq/L (97-108) 96mEq/L (97-108) Carbon Dioxide Level 27mmol/L (18-29) 25mmol/L (18-29) Blood Urea Nitrogen 41mg/dL (8-27) 44mg/dL (8-27) Creatinine 1.84mg/dL (0.76-1.27) 1.76mg/dL (0.76-1.27) Estimat Glomerular Filtration Rate 39mL/min (>59) 41mL/min (>59) Glucose Level 357mg/dL (60-99) 257mg/dL (60-99) Calcium Level 8.7mg/dL (8.5-10.1) 8.5mg/dL (8.5-10.1) Total Bilirubin 0.4mg/dL (0.0-1.2) Aspartate Amino Transf (AST/SGOT) 29U/L (0-50) Alanine Aminotransferase (ALT/SGPT) 18U/L (0-44) Alkaline Phosphatase 170U/L (25-160) Total Protein 6.4g/dL (6.4-8.4) Albumin 3.6g/dL (3.4-5.0) Triglycerides Level 117mg/dL (0-149) Cholesterol Level 192mg/dL (100-199) LDL Cholesterol, Calculated 137.600mg/dL (0-99) VLDL Cholesterol 23.400mg/dL HDL Cholesterol 31mg/dL (>39) Cholesterol/HDL Ratio 6.19 (0.0-4.4) Hold Game[employer] Top Tube Received (Received) Result Diagram: 09/03/16 0240 09/03/16 1607 X-Rays, CTs and MRIs Chest x-ray reveals pulmonary edema. 12-lead ECG ECG, no ST segment changes. Q waves in the septal leads and inferior leads. Cardiac Echo Impressions Echocardiogram Report Name: ROXIE GENTILE EStudy Date: 09/03/2016 Height: 65 in Hospital Exam Location: [facility] Weight: 275 lb Gender: Male BSA: 2.3 m2 : 1950 Age: 66 yrs BP: 153/88 mmHg Reason For Study: Dyspnea Ordering Physician: Performed By: Andie Gregg Referring Physician: [facility] Interpretation Summary 1) Mild concentric left ventricular hypertrophy with normal size, wall motion, and systolic function (EF 65-70%). 2) Mildly dilated right ventricle with mildly reduced function. The distal free wall of the right ventricle appears hypokinetic, which could be pham sign that is seen in pulmonary embolism but pulmonary pressures are not elevated on this Echo. Correlate clinically. 3) Valves not well visualized but no significant valvular abnormalities noted. 4) High normal pulmonary artery pressures, estimated systolic pulmonary pressure of 34mmHg. 5) No prior Echo available for comparison. Procedure: A two-dimensional transthoracic echocardiogram with color flow and Doppler was performed. The study quality was technically difficult. There is no prior echocardiogram noted for this patient. A contrast injection of Definity was performed to improve assessment of LV function. The patient did well with the contrast. The patient was in normal sinus rhythm during the exam. Left Ventricle: The left ventricle is normal in size. There is mild concentric left ventricular hypertrophy. The ejection fraction is estimated to be 65-70%. There are no obvious focal wall motion abnormalities noted but poor endocardial definition reduces the sensitivity for the detection of such. Assessment of diastolic parameters indicates a relaxation abnormality of the left ventricle, consistent with normal filling pressures. Right Ventricle: The right ventricle is mildly dilated. Right ventricular systolic function is mildly reduced. Atria: Both atria are normal in size. Mitral Valve: The mitral valve is grossly normal. Aortic Valve: The aortic valve is grossly normal. There is no aortic valve stenosis. No aortic regurgitation is present. Tricuspid Valve: The tricuspid valve is not well visualized, but is grossly normal. There is a trace or physiologic amount of tricuspid regurgitation. The right ventricular systolic pressure is estimated at 34 mmHg assuming a right atrial pressure of 3 mm Hg. Pulmonic Valve: The pulmonic valve is not well visualized. Great Vessels: The aortic root is normal size. The ascending aorta is at the upper limits of normal in size. The IVC is of normal diameter and collapses greater than 50% with a sniff. This suggests a low right atrial pressure of 3 mm Hg. Pericardium/ Pleura There is no pericardial effusion. MMode/2D Measurements & Calculations LVIDd: 4.2 cm RA long axis Ao root diam LVIDs: 2.5 cm LA A2 area: 15.5 cm FS: 39.8 % LA A4 area: 19.2 cm RA area asc Aorta EPSS: 0.62 cm LA length (vol): 5.7 cm Diam: 3.8 cm IVSd: 1.1 cm LA vol: 44.3 ml : 18.1 cm LVPWd: 1.0 cm LA vol index RA vol: 46.4 ml RA : 20.5 mm2 IVC diam: 1.4 cm LV herrera. diameter/BSA LV sys. diameter/BSA RVD1 (basal) TAPSE: 2.3 cm (cm/m^2): 1.8 (cm/m^2): 1.1 Doppler Measurements & Calculations Ao V2 max MV E max gilbert MV E/A: 0.51 TR max gilbert : 142.1 cm/sec : 44.4 cm/sec Med Peak E' Gilbert : 280.3 cm/sec Ao max P.1 mmHgMV A max gilbert TR max PG Ao mean PG : 87.4 cm/sec E/E' med: 9.2 : 31.4 mmHg MV P1/2t: 92.2 msec MV A dur: 0.13 sec PA V2 max LVOT Max Gilbert : 100.8 cm/sec : 122.8 cm/sec PA mean PG sev ratio: 0.87 PA Accel Time : 0.10 sec MV dec time MV P1/2t max gilbert Ao V2 mean LV V1 max PG : 0.31 sec : 107.8 cm/sec Ao V2 VTI: 31.9 cm LV V1 VTI: 27.6 cm MVA(P1/2t): 2.4 cm2 PA V2 mean : 65.4 cm/sec Reading Physician:02:20 PM Assessment & Plan 1. Acute respiratory failure with hypoxia, POA. Pain is supplemental oxygen as needed. The specific etiology remains unclear. In addition I have believe it is possible that he does have chronic lung disease as a contributing factor. Could be secondary to COPD exacerbation or possible pneumonia which is being covered with IV Rocephin and IV azithromycin for possible diastolic acute dysfunction given EF is normal on echocardiogram. The patient today on exam seems to be having more wheezing we will go ahead and give him albuterol every 6 hours and every 2 hours when necessary. Check chest x-ray in the morning and check morning labs. We will increase his Lasix to IV twice a day. 2. Possible acute diastolic heart failure, POA. We will begin diuresis with Lasix. We will also trend troponins. 3. Possible NSTEMI, POA. We will beta blockade, to dual antiplatelets, and trend troponins. These remain slightly elevated. We will continue to follow his troponins. There is no clear history of coronary artery disease. His EKG does have septal Q waves consistent with possible previous cardiovascular events. His clinical course and may require more in depth risk stratification testing. 4. Possible URI versus pneumonia, POA. His adult respiratory PCR is negative. We will repeat his chest x-ray again continue treating him with antibiotics empirically. 5. One positive blood culture, which may represent contaminant versus septicemia pending on following cultures. No change antibiotics. 6. Diabetes 2, POA. Usual regimen is Lantus 65 at bedtime and lispro 18 before meals plus correctional. The patient is very hyperglycemic. We will add an additional 10 of Lantus at this time and increase his at bedtime Lantus to 70 . Did review with patient and that he did have an elevated hemoglobin A1c and did have poor control while he was at home also. 6. Obesity, POA. 7. Acute renal failure on probable chronic kidney disease, stage unclear. ANTONETTE. Improved today. 8. Hyperkalemia, not present on admission. Currently resolved but we will continue to monitor. Patient is full resuscitation in contrast to the ED note and this was verified. He is admitted inpatient status, with a length of stay of over 2 nights. Resuscitation Status: CPR: Attempt Resuscitation Time spent 30 minutes Jacquie Sharpe MD Sep 05, 2016 16:04
--- NOTE | 2016-09-05 18:55 | NUR ---
Oxygen Pt taken off of Bipap this morning. Pt needs 10L of oxymask during the day and 6LNC when eating to maintain sats of 89-93% Pt gets very SOB with minimal activities.
[2016-09-05] MEDS: Albuterol 2.5 mg/3 mL Inhalation Solution NEB SCH ×2 (20:30→22:05)
[2016-09-05] MEDS: Insulin GLARgine 100 Unit/mL Syringe SUBQ SCH (21:05)
[2016-09-06] VITALS (12 sets, daily range): BP systolic 128–171; BP diastolic 77–95; PULSE 70–101; RESP 20–24; O2SAT 90–98
[2016-09-06] MEDS: Heparin 5,000 Unit/mL Inj SUBQ SCH ×3 (01:31→16:41)
[2016-09-06] MEDS: Albuterol 2.5 mg/3 mL Inhalation Solution NEB SCH ×4 (02:38→20:30)
[2016-09-06 03:31] LABS: BASOPHILS % (AUTO) 0.1 % (0-3); EOSINOPHILS % (AUTO) 0.1 % (0-5); Mean Corpuscular Hemoglobin 30.3 pg (27.0-35.0); Mean Corpuscular Volume 97.7 fL (81-100); NEUTROPHILS % (AUTO) 52.1 % (40-74); Platelet Count 172 bil/L (150-400)
--- NOTE | 2016-09-06 05:14 | NUR ---
NOC PT was placed on bipap at bedtime as he was on 6lNC and sats were only marginal. RT recommended bipap over night. PT is dyspneic with activity and at rest. His lungs are tight t/o with wheezes and squeaks her at posterior bases. PT has intermittent cough noted. HIs abdomen is very round and makes it additionally hard for him to breath. He is receiving routine nebs. Trace BLE edema noted. BG required coverage at HS. Rechecked at 0300 for safety. It was int he 200 range. PT had one very large urine incontinence after he took his temazepam at HS. Groin, scrotum and pannus is red. Nystatin applied. Pt is SBA to BSC. WIll CTM.
[2016-09-06] MEDS: Furosemide 10 mg/mL 4 mL Inj IVPUSH SCH ×2 (06:34→16:41)
[2016-09-06] MEDS: Insulin LISPRO 300 Unit/3 mL Inj SUBQ SCH ×4 (08:00→21:25)
[2016-09-06] MEDS: Tiotropium 18mcg/Cap 5 Capsule Inhaler Kit INHALATION SCH (10:08)
[2016-09-06] MEDS: Brimonidine 0.2% 5 mL Ophthalmic Solution BOTH_EYES SCH ×3 (10:10→21:24)
[2016-09-06] MEDS: Azithromycin Inj 500 MG in Dextrose 5% w/Vial Mate 250 ML IV SCH (10:10)
[2016-09-06] MEDS: predniSONE 20 mg Tablet PO SCH (10:10)
[2016-09-06] MEDS: Nystatin 100,000 Unit/Gm 15 Gm Powder TOPICAL SCH ×2 (10:11→21:24)
--- NOTE | 2016-09-06 10:34 | NUR ---
Social Work: Readiness for Discharge D: Pt Discussed in am rounds. Pt is not medically stable and is anticipated to require several more days of hospitalization due to respiratory needs. EMR reviewed for d/c needs. Pt has been discharged from PT services and was ambulating 100 feet CGA. Pt declined HH. Pt will likely require home 02 unless respiratory needs greatly improve. CROCHET MACHINE OPERATOR met with pt at bedside to review discharge plan and reassess. Pt expresses no home needs and again declined HH recommendation. Pt states his will transport. A: Pt who is I at baseline and lives with his P: Anticipate home with no sw needs; R/o home 02 at d/c. CROCHET MACHINE OPERATOR to continue to follow. ADITYA Eugene
--- NOTE | 2016-09-06 10:40 | DRSVH ---
PROCEDURE: X-RAY CHEST, TWO VIEWS ([id number]) INDICATIONS: wheezing TECHNIQUE: 2 views of the chest were acquired. COMPARISON: [facility], CR, CHEST 2VW, 09/06/2009, 14:39. FINDINGS: Surgical changes and devices: None. Lungs and pleura: No pleural effusions or pneumothorax. Lungs are clear, aside from bibasilar airsp tiffanie opacities.. Mediastinum: Mediastinal contours are normal. Heart size is normal. Bones and chest wall: No suspicious bony abnormalities. Soft tissues appear unremarkable. IMPRESSION: Bibasilar air space opacities suspicious for aspiration or pneumonia. Dictated by: Fred GARCIAA Interpreted: Mary Villalobos MD on 09/06/2016 at 10:39 Transcribed by: JOSÉ on 09/06/2016 at 10:39 Approved by: Mary Villalobos MD, PhD on 09/06/2016 at 17:08
[2016-09-06] MEDS: cefTRIAXone Inj 1,000 MG in Dextrose 5% Minibag Plus 50 ML IV SCH (11:57)
--- NOTE | 2016-09-06 14:41 | NUR ---
X-Ray He left [facility] 2002 about 0841 via wheelchair and transporter to get a chest x-ray completed. He returned to his room about 0855. Care continues.
--- NOTE | 2016-09-06 18:09 | PCM.PNMED ---
Subjective Date of Service Sep 06, 2016 Subjective Patient is sitting in chair eating breakfast currently Exam Vital Signs Vital Sign - Last Date Time Temp Pulse Resp B/P Pulse Ox O2 Delivery O2 Flow Rate FiO2 09/06/16 16:51 37.1 76 24 162/86 94 OxyMask 6.00 09/06/16 03:32 45 Intake and Output 09/05/16 09/05/16 09/06/16 Cumulative From/Thru 14:59 22:59 06:59 09/02/16 10:41 - 09/06/16 06:18 Intake Total 750 ml 636 ml 5116 ml Output Total 1050 ml 725 ml 6275 ml Balance -300 ml -89 ml -1159 ml Intake Oral 750 ml 636 ml 4316 ml IV Total 800 ml Output Urine Total 1050 ml 725 ml 6275 ml # Voids 4 6 # Bowel Movements 0 0 1 Exam Constitutional: Elderly male who is resting comfortably but does have some wheezing audibly Head: Normocephalic atraumatic Chest: Diffuse expiratory wheezes anteriorly and decreased breath sounds posteriorly Cor: Regular rate and rhythm S1-S2 Abdomen: Soft nontender bowel sounds present Extremities: Trace bilateral pedal edema Lab and Diagnostics Laboratory Tests 72 Hours Test 09/05/16 04:00 09/05/16 17:13 09/06/16 02:59 09/06/16 11:25 Hold Game[employer] Top Tube Received (Received) Sodium Level 134mEq/L (134-144) 133mEq/L (134-144) Potassium Level 5.7mEq/L (3.5-5.2) 4.5mEq/L (3.5-5.2) Chloride Level 91mEq/L (97-108) 88mEq/L (97-108) Carbon Dioxide Level 31mmol/L (18-29) 31mmol/L (18-29) Blood Urea Nitrogen 47mg/dL (8-27) 51mg/dL (8-27) Creatinine 1.85mg/dL (0.76-1.27) 1.69mg/dL (0.76-1.27) Estimat Glomerular Filtration Rate 39mL/min (>59) 43mL/min (>59) Glucose Level 396mg/dL (60-99) 295mg/dL (60-99) Calcium Level 8.0mg/dL (8.5-10.1) 8.6mg/dL (8.5-10.1) Total Bilirubin 0.4mg/dL (0.0-1.2) 0.4mg/dL (0.0-1.2) Aspartate Amino Transf (AST/SGOT) 18U/L (0-50) 22U/L (0-50) Alanine Aminotransferase (ALT/SGPT) 16U/L (0-44) 16U/L (0-44) Alkaline Phosphatase 126U/L (25-160) 117U/L (25-160) Total Protein 5.6g/dL (6.4-8.4) 5.8g/dL (6.4-8.4) Albumin 3.4g/dL (3.4-5.0) 3.2g/dL (3.4-5.0) White Blood Count 6.8th/mm3 (3.8-10.1) Red Blood Count 5.54mil/mm3 (4.40-5.80) Hemoglobin 16.8g/dL (13.8-17.2) Hematocrit 54.1% (41.0-50.0) Mean Corpuscular Volume 97.7fL (81-100) Mean Corpuscular Hemoglobin 30.3pg (27.0-35.0) Mean Corpuscular Hemoglobin Concent 31.1% (32.0-37.0) Red Cell Distribution Width 16.3% (12.3-15.4) Platelet Count 172bil/L (150-400) Neutrophils (%) (Auto) 52.1% (40-74) Lymphocytes (%) (Auto) 27.4% (14-46) Monocytes (%) (Auto) 20.0% (4-12) Eosinophils (%) (Auto) 0.1% (0-5) Basophils (%) (Auto) 0.1% (0-3) Magnesium Level 2.2mg/dL (1.6-2.6) Result Diagram: 09/06/16 0259 09/06/16 1372 X-Rays, CTs and MRIs Chest x-ray reveals pulmonary edema. 12-lead ECG ECG, no ST segment changes. Q waves in the septal leads and inferior leads. Cardiac Echo Impressions Echocardiogram Report Name: ROXIE GENTILE Date: 09/03/2016 Height: 65 in Hospital Exam Location: [facility] Weight: 275 lb Gender: Male BSA: 2.3 m2 : 1950 Age: 66 yrs BP: 153/88 mmHg Reason For Study: Dyspnea Ordering Physician: Performed By: Andie Gregg Referring Physician: [facility] Interpretation Summary 1) Mild concentric left ventricular hypertrophy with normal size, wall motion, and systolic function (EF 65-70%). 2) Mildly dilated right ventricle with mildly reduced function. The distal free wall of the right ventricle appears hypokinetic, which could be pham sign that is seen in pulmonary embolism but pulmonary pressures are not elevated on this Echo. Correlate clinically. 3) Valves not well visualized but no significant valvular abnormalities noted. 4) High normal pulmonary artery pressures, estimated systolic pulmonary pressure of 34mmHg. 5) No prior Echo available for comparison. Procedure: A two-dimensional transthoracic echocardiogram with color flow and Doppler was performed. The study quality was technically difficult. There is no prior echocardiogram noted for this patient. A contrast injection of Definity was performed to improve assessment of LV function. The patient did well with the contrast. The patient was in normal sinus rhythm during the exam. Left Ventricle: The left ventricle is normal in size. There is mild concentric left ventricular hypertrophy. The ejection fraction is estimated to be 65-70%. There are no obvious focal wall motion abnormalities noted but poor endocardial definition reduces the sensitivity for the detection of such. Assessment of diastolic parameters indicates a relaxation abnormality of the left ventricle, consistent with normal filling pressures. Right Ventricle: The right ventricle is mildly dilated. Right ventricular systolic function is mildly reduced. Atria: Both atria are normal in size. Mitral Valve: The mitral valve is grossly normal. Aortic Valve: The aortic valve is grossly normal. There is no aortic valve stenosis. No aortic regurgitation is present. Tricuspid Valve: The tricuspid valve is not well visualized, but is grossly normal. There is a trace or physiologic amount of tricuspid regurgitation. The right ventricular systolic pressure is estimated at 34 mmHg assuming a right atrial pressure of 3 mm Hg. Pulmonic Valve: The pulmonic valve is not well visualized. Great Vessels: The aortic root is normal size. The ascending aorta is at the upper limits of normal in size. The IVC is of normal diameter and collapses greater than 50% with a sniff. This suggests a low right atrial pressure of 3 mm Hg. Pericardium/ Pleura There is no pericardial effusion. MMode/2D Measurements & Calculations LVIDd: 4.2 cm RA long axis Ao root diam LVIDs: 2.5 cm LA A2 area: 15.5 cm FS: 39.8 % LA A4 area: 19.2 cm RA area asc Aorta EPSS: 0.62 cm LA length (vol): 5.7 cm Diam: 3.8 cm IVSd: 1.1 cm LA vol: 44.3 ml : 18.1 cm LVPWd: 1.0 cm LA vol index RA vol: 46.4 ml RA : 20.5 mm2 IVC diam: 1.4 cm LV herrera. diameter/BSA LV sys. diameter/BSA RVD1 (basal) TAPSE: 2.3 cm (cm/m^2): 1.8 (cm/m^2): 1.1 Doppler Measurements & Calculations Ao V2 max MV E max gilbert MV E/A: 0.51 TR max gilbert : 142.1 cm/sec : 44.4 cm/sec Med Peak E' Gilbert : 280.3 cm/sec Ao max P.1 mmHgMV A max gilbert TR max PG Ao mean PG : 87.4 cm/sec E/E' med: 9.2 : 31.4 mmHg MV P1/2t: 92.2 msec MV A dur: 0.13 sec PA V2 max LVOT Max Gilbert : 100.8 cm/sec : 122.8 cm/sec PA mean PG sev ratio: 0.87 PA Accel Time : 0.10 sec MV dec time MV P1/2t max gilbert Ao V2 mean LV V1 max PG : 0.31 sec : 107.8 cm/sec Ao V2 VTI: 31.9 cm LV V1 VTI: 27.6 cm MVA(P1/2t): 2.4 cm2 PA V2 mean : 65.4 cm/sec Reading Physician:02:20 PM Assessment & Plan 1. Acute respiratory failure with hypoxia, POA. Pain is supplemental oxygen as needed. The specific etiology remains unclear. In addition I have believe it is possible that he does have chronic lung disease as a contributing factor. Could be secondary to COPD exacerbation or possible pneumonia which is being covered with IV Rocephin and IV azithromycin. The patient today on exam seems to be having more wheezing we will go ahead and give him albuterol every 6 hours and every 2 hours when necessary. Check chest x-ray this morning which did not show any acute abnormalities. We will increase his Lasix to IV twice a day. Patient does appear to be CO2 retainer given his bicarbonate when he came in and hence have requested that his O2 sats be between 88 and 92%. 3. Possible NSTEMI, POA. We will beta blockade, to dual antiplatelets, and trend troponins. These remain slightly elevated. We will continue to follow his troponins. There is no clear history of coronary artery disease. His EKG does have septal Q waves consistent with possible previous cardiovascular events. Echocardiogram did not show any focal abnormalities. 4. Possible URI versus pneumonia, POA. His adult respiratory PCR is negative. We will repeat his chest x-ray again continue treating him with antibiotics empirically. 5. One positive blood culture, which may represent contaminant versus septicemia pending on following cultures. No change antibiotics. 6. Diabetes 2, POA. Usual regimen is Lantus 65 at bedtime and lispro 18 before meals plus correctional. The patient is very hyperglycemic. We will add an additional 10 of Lantus at this time and increase his at bedtime Lantus to 70 . Did review with patient and that he did have an elevated hemoglobin A1c and did have poor control while he was at home also. 6. Obesity, POA. # Possible SRIRAM, present on admission Patient has been using BiPAP while here at night. Unable to get history whether he uses this at home. Will need to be further investigated. 7. Acute renal failure on probable chronic kidney disease, stage unclear. ANTONETTE. Improved today. 8. Hyperkalemia, not present on admission. Currently resolved but we will continue to monitor. Patient is full resuscitation in contrast to the ED note and this was verified. He is admitted inpatient status, with a length of stay of over 2 nights. Resuscitation Status: CPR: Attempt Resuscitation Time spent 30 minutes Jacquie Sharpe MD Sep 06, 2016 18:09
[2016-09-06] MEDS: Insulin GLARgine 100 Unit/mL Syringe SUBQ SCH (21:25)
[2016-09-07] VITALS (13 sets, daily range): BP systolic 153–172; BP diastolic 90–102; PULSE 68–84; RESP 18–22; O2SAT 88–97
[2016-09-07] MEDS: Heparin 5,000 Unit/mL Inj SUBQ SCH ×3 (00:36→16:50)
[2016-09-07] MEDS: Albuterol 2.5 mg/3 mL Inhalation Solution NEB SCH ×4 (04:48→20:54)
[2016-09-07] MEDS: Furosemide 10 mg/mL 4 mL Inj IVPUSH SCH ×2 (05:09→18:24)
--- NOTE | 2016-09-07 06:26 | NUR ---
BGs/HTN/Pain Pt's HS BG was 379 and pt received 10units of Lispro and 70units of Lantus. Pt's 0430 BP was 171/102 and MD was made aware. MD gave TORB: give pt his 0600 Lasix 40mg IVP and his 0800 6.25mg carvedilol. At HS pt c/o 10/10 pain in left leg knee down and pt was given 300mg scheduled gabapentin and 50mg PRN tramadol.
[2016-09-07] MEDS: Insulin LISPRO 300 Unit/3 mL Inj SUBQ SCH ×4 (08:00→20:29)
[2016-09-07] MEDS: Brimonidine 0.2% 5 mL Ophthalmic Solution BOTH_EYES SCH ×3 (08:43→20:25)
[2016-09-07] MEDS: Tiotropium 18mcg/Cap 5 Capsule Inhaler Kit INHALATION SCH (08:45)
[2016-09-07] MEDS: Azithromycin Inj 500 MG in Dextrose 5% w/Vial Mate 250 ML IV SCH (08:46)
[2016-09-07] MEDS: predniSONE 20 mg Tablet PO SCH (08:46)
[2016-09-07] MEDS: Nystatin 100,000 Unit/Gm 15 Gm Powder TOPICAL SCH ×2 (08:47→20:25)
[2016-09-07] MEDS: cefTRIAXone Inj 1,000 MG in Dextrose 5% Minibag Plus 50 ML IV SCH (12:07)
--- NOTE | 2016-09-07 12:15 | NUR ---
O2 needs stable Pt is on 6l via oxy mask this am and sats are low 90's. They do drop into the high 80's with activity. Pt taking diet and fluids well. He states he feels much better and would like to go home.
--- NOTE | 2016-09-07 12:41 | PCM.PNMED ---
Subjective Date of Service Sep 07, 2016 Subjective 58-year-old man with COPD, type II diabetes mellitus, obesity class III presents with 4 days of dyspnea on exertion, due to acute on chronic diastolic CHF, COPD exacerbation and possible pneumonia. Reports breathing slightly improved. No significant purulent phlegm. Last fever was on 09/05. Wants to go home, but has not ambulated significantly. Still moderately hypoxic. No chest pain. No abdominal complaints. Exam Vital Signs Vital Sign - Last Date Time Temp Pulse Resp B/P Pulse Ox O2 Delivery O2 Flow Rate FiO2 09/07/16 12:16 37.0 71 18 165/92 96 OxyMask 10.00 09/07/16 04:36 45 Intake and Output 09/06/16 09/06/16 09/07/16 Cumulative From/Thru 14:59 22:59 06:59 09/02/16 10:41 - 09/07/16 06:35 Intake Total 1080 ml 970 ml 7166 ml Output Total 2400 ml 1975 ml 80952 ml Balance -1320 ml -1005 ml -3484 ml Intake Oral 750 ml 950 ml 6016 ml IV Total 330 ml 20 ml 1150 ml Output Urine Total 2400 ml 1975 ml 03633 ml # Voids 6 # Bowel Movements 1 Exam General: Obese elderly gentleman in no acute distress HEENT: sclerae anicteric, oral mucosa moist Neck: Occult process JVD Chest: Bilateral rhonchi, air movement okay, mild wheeze Cardiac: S1S2, no apparent murmur Abdomen: BS normal, non-tender Extremities: Trace edema Neuro: A&O, cranial nerves symmetric, motor strength 5/5, coordination normal IVs and Medications Medications Reviewed: Medications were reviewed in detail Lab and Diagnostics Result Diagram: 09/06/16 0259 09/06/16 1125 X-Rays, CTs and MRIs PROCEDURE: X-RAY CHEST ONE VIEW, PORTABLE ([id number]) IMPRESSION: No acute cardiopulmonary disease. Mild diffuse pulmonary interstitial prominence. Dictated by: Glory Hoang M.D. on 09/02/2016 at 11:43 PROCEDURE: X-RAY CHEST, TWO VIEWS ([id number]) IMPRESSION: Bibasilar air space opacities suspicious for aspiration or pneumonia. Dictated by: Fred CHILDS Interpreted: Mary Villalobos MD on 09/06/2016 at 10:39 . 12-lead ECG ECG, no ST segment changes. Q waves in the septal leads and inferior leads. Cardiac Echo Impressions Echocardiogram Report Name: ROXIE GENTILE EStudy Date: 09/03/2016 Height: 65 in Hospital Exam Location: [facility] Weight: 275 lb Gender: Male BSA: 2.3 m2 : 1950 Age: 66 yrs BP: 153/88 mmHg Reason For Study: Dyspnea Ordering Physician: Performed By: Andie Gregg Referring Physician: [facility] Interpretation Summary 1) Mild concentric left ventricular hypertrophy with normal size, wall motion, and systolic function (EF 65-70%). 2) Mildly dilated right ventricle with mildly reduced function. The distal free wall of the right ventricle appears hypokinetic, which could be pham sign that is seen in pulmonary embolism but pulmonary pressures are not elevated on this Echo. Correlate clinically. 3) Valves not well visualized but no significant valvular abnormalities noted. 4) High normal pulmonary artery pressures, estimated systolic pulmonary pressure of 34mmHg. 5) No prior Echo available for comparison. Procedure: A two-dimensional transthoracic echocardiogram with color flow and Doppler was performed. The study quality was technically difficult. There is no prior echocardiogram noted for this patient. A contrast injection of Definity was performed to improve assessment of LV function. The patient did well with the contrast. The patient was in normal sinus rhythm during the exam. Left Ventricle: The left ventricle is normal in size. There is mild concentric left ventricular hypertrophy. The ejection fraction is estimated to be 65-70%. There are no obvious focal wall motion abnormalities noted but poor endocardial definition reduces the sensitivity for the detection of such. Assessment of diastolic parameters indicates a relaxation abnormality of the left ventricle, consistent with normal filling pressures. Right Ventricle: The right ventricle is mildly dilated. Right ventricular systolic function is mildly reduced. Atria: Both atria are normal in size. Mitral Valve: The mitral valve is grossly normal. Aortic Valve: The aortic valve is grossly normal. There is no aortic valve stenosis. No aortic regurgitation is present. Tricuspid Valve: The tricuspid valve is not well visualized, but is grossly normal. There is a trace or physiologic amount of tricuspid regurgitation. The right ventricular systolic pressure is estimated at 34 mmHg assuming a right atrial pressure of 3 mm Hg. Pulmonic Valve: The pulmonic valve is not well visualized. Great Vessels: The aortic root is normal size. The ascending aorta is at the upper limits of normal in size. The IVC is of normal diameter and collapses greater than 50% with a sniff. This suggests a low right atrial pressure of 3 mm Hg. Pericardium/ Pleura There is no pericardial effusion. MMode/2D Measurements & Calculations LVIDd: 4.2 cm RA long axis Ao root diam LVIDs: 2.5 cm LA A2 area: 15.5 cm FS: 39.8 % LA A4 area: 19.2 cm RA area asc Aorta EPSS: 0.62 cm LA length (vol): 5.7 cm Diam: 3.8 cm IVSd: 1.1 cm LA vol: 44.3 ml : 18.1 cm LVPWd: 1.0 cm LA vol index RA vol: 46.4 ml RA : 20.5 mm2 IVC diam: 1.4 cm LV herrera. diameter/BSA LV sys. diameter/BSA RVD1 (basal) TAPSE: 2.3 cm (cm/m^2): 1.8 (cm/m^2): 1.1 Doppler Measurements & Calculations Ao V2 max MV E max gilbert MV E/A: 0.51 TR max gilbert : 142.1 cm/sec : 44.4 cm/sec Med Peak E' Gilbert : 280.3 cm/sec Ao max P.1 mmHgMV A max gilbert TR max PG Ao mean PG : 87.4 cm/sec E/E' med: 9.2 : 31.4 mmHg MV P1/2t: 92.2 msec MV A dur: 0.13 sec PA V2 max LVOT Max Gilbert : 100.8 cm/sec : 122.8 cm/sec PA mean PG sev ratio: 0.87 PA Accel Time : 0.10 sec MV dec time MV P1/2t max gilbert Ao V2 mean LV V1 max PG : 0.31 sec : 107.8 cm/sec Ao V2 VTI: 31.9 cm LV V1 VTI: 27.6 cm MVA(P1/2t): 2.4 cm2 PA V2 mean : 65.4 cm/sec Reading Physician:02:20 PM Assessment & Plan Acute and/or high-risk problems: #. Acute respiratory failure with hypoxia, POA. Pain is supplemental oxygen as needed. Secondary to COPD exacerbation, CHF, SRIRAM and or possible pneumonia. Metabolic alkalosis suggests chronic CO2 retention. COPD versus SRIRAM. Echocardiogram suggests acute on chronic diastolic CHF. BNP elevated at 7362 on admission. - albuterol every 6 hours and every 2 hours when necessary. - Treated for pneumonia, CHF and COPD exacerbation - O2 sats be between 88 and 92%. - Assess for home O2 therapy when clinically stable #. Pneumonia, acute, POA. Procalcitonin elevated at 0.11. Initial chest x-ray was unremarkable at subsequently with bibasilar infiltrates. Febrile to 38.4 on 09/05. - Ceftriaxone and azithromycin for community-acquired pneumonia. #. Hypoxic respiratory failure due to COPD, acute on chronic. Mild wheezing noted on admission. History of lung disease unclear. Possibly COPD with obesity restrictive disease with SRIRAM. - Glucocorticoid burst - Bronchodilators #. Acute on chronic diastolic CHF. Very little diuresis with Lasix 40 mg IV twice a day. - Increase IV Lasix 80 mg twice a day on 08/10 - One-time metolazone boost - Target 2 kg net diuresis prior to discharge home #. Diabetes 2, POA. Usual regimen is Lantus 65 at bedtime and lispro 18 before meals plus correctional. Glucose remains above goal for inpatient care. He shows relative hypoglycemia after overnight fasting. Daytime hyperglycemia. - Reduce Lantus 70 down to 60 units bedtime - Increased nutritional 8-12 units with correctional - 4 times a day capillary blood glucose - Glucose control goals: Random less than 180, fasting less than 140, none less than 70 # Possible SRIRAM, present on admission - Patient has been using BiPAP while here at night. - O2 saturation monitor at nighttime. #. Obesity, POA. - Physical therapy consultation to assist with mobilization. - Continue obesity related nursing care #. Acute kidney injury on probable chronic kidney disease, stage unclear. ANTONETTE. Serum creatinine 1.5 on admission. Elevated to 1.85. Likely cardiorenal. - Daily BMP Resolving, stable and/or chronic problems: #. Possible NSTEMI, POA. Troponins minimally elevated on admission at 0.02, 0.01. There is no clear history of coronary artery disease. His EKG does have septal Q waves consistent with possible previous cardiovascular events. Echocardiogram did not show any focal abnormalities. Overall picture seems primarily respiratory with troponin elevation due to acute on chronic diastolic CHF cardiac strain. - Follow clinically at present #. One positive blood culture, coag negative Staphylococcus, which may represent contaminant versus septicemia pending on following cultures. As when blood cultures negative. - No change antibiotics. #. Hyperkalemia, not present on admission. Currently resolved but we will continue to monitor. Status: Patient is full resuscitation in contrast to the ED note and this was verified. Disposition: Anticipate 1-2 more days of even for multifactorial acute on chronic respiratory failure. Likely home on 08/12 with home O2 arrangements. VTE Prophylaxis: Sub-Q Heparin (Unfractionated) Resuscitation Status: CPR: Attempt Resuscitation Time spent 35 min Panda Doan MD Sep 07, 2016 12:41
[2016-09-07] MEDS: Polyethylene Glycol (PEG) 17 Gm Powder PO SCH (14:12)
--- NOTE | 2016-09-07 18:32 | NUR ---
P: Resp, Neuro, Social, Nutrition I,E: Pt is on 6lNC sats 88-91%. Pt is somewhat dyspneic at rest but he states he is at his baseline. he does have an occ moist bronchospastic cough. He will be on BiPap again tonight to sleep per RT. Pt is alert and oriented, co operative. Pt's was here for most of the day and she is great support. She is a retired [employer] and helps with some of his care also. Pt takes 100% of his meals. OT was increasing today and this evening it was 411. MD has added nutritional as well as correctional insulin.
[2016-09-07] MEDS: Insulin GLARgine 100 Unit/mL Syringe SUBQ SCH (20:27)
[2016-09-08] VITALS (16 sets, daily range): BP systolic 130–164; BP diastolic 72–97; PULSE 70–88; RESP 18–22; O2SAT 90–96
[2016-09-08] MEDS: Heparin 5,000 Unit/mL Inj SUBQ SCH ×3 (01:08→18:17)
--- NOTE | 2016-09-08 02:10 | NUR ---
BS/OUTPUT/OXYGENATION Pt's HS BS was 419, was given 10 units correctional and 60 units Lantus. Pt c/o foot pain and received his scheduled gabapentin, pt did not request additional pain medications. Pt was on 6L NC and BiPAP @ night @ 45% FiO2 sating in the low 90's. Pt is receiving 80 mg lasix BID, urine output as of now is around 2800cc and pale in color. Pt slept well throughout the night, no other issues noted at this time.
[2016-09-08] MEDS: Albuterol 2.5 mg/3 mL Inhalation Solution NEB SCH ×4 (02:30→20:37)
[2016-09-08] MEDS: Furosemide 10 mg/mL 4 mL Inj IVPUSH SCH ×2 (05:05→18:20)
[2016-09-08] MEDS: Insulin LISPRO 300 Unit/3 mL Inj SUBQ SCH ×4 (07:30→21:10)
[2016-09-08] MEDS: Brimonidine 0.2% 5 mL Ophthalmic Solution BOTH_EYES SCH ×3 (08:16→21:09)
[2016-09-08] MEDS: predniSONE 20 mg Tablet PO SCH (08:16)
[2016-09-08] MEDS: Tiotropium 18mcg/Cap 5 Capsule Inhaler Kit INHALATION SCH (08:16)
[2016-09-08] MEDS: Azithromycin Inj 500 MG in Dextrose 5% w/Vial Mate 250 ML IV SCH (08:16)
[2016-09-08] MEDS: Polyethylene Glycol (PEG) 17 Gm Powder PO SCH (08:17)
[2016-09-08] MEDS: Nystatin 100,000 Unit/Gm 15 Gm Powder TOPICAL SCH ×2 (08:19→21:09)
[2016-09-08] MEDS: cefTRIAXone Inj 1,000 MG in Dextrose 5% Minibag Plus 50 ML IV SCH (10:39)
--- NOTE | 2016-09-08 12:11 | PCM.PNMED ---
Subjective Date of Service Sep 08, 2016 Subjective 58-year-old man with COPD, type II diabetes mellitus, obesity class III presents with 4 days of dyspnea on exertion, due to acute on chronic diastolic CHF, COPD exacerbation and possible pneumonia. Reports breathing slightly improved. Last fever was on 09/05. Wants to go home, but has not ambulated significantly. Still moderately hypoxic, but he has been home O2 dependent in the past. Lost his oxygen concentrator when he moved one year ago. Unclear what his oxygen baseline. He has not had sleep study but is noted by to have snoring and apnea at night. Exam Vital Signs Vital Sign - Last Date Time Temp Pulse Resp B/P Pulse Ox O2 Delivery O2 Flow Rate FiO2 09/08/16 11:52 36.3 88 20 139/72 90 Nasal Cannula 6.00 09/08/16 04:44 45 Intake and Output 09/07/16 09/07/16 09/08/16 Cumulative From/Thru 14:59 22:59 06:59 09/02/16 10:41 - 09/08/16 05:22 Intake Total 1235 ml 636 ml 9037 ml Output Total 2825 ml 2750 ml 78411 ml Balance -1590 ml -2114 ml -7188 ml Intake Oral 880 ml 636 ml 7532 ml IV Total 355 ml 1505 ml Output Urine Total 2825 ml 2750 ml 28883 ml # Voids 6 # Bowel Movements 1 0 2 Exam General: Obese elderly gentleman in no acute distress HEENT: sclerae anicteric, oral mucosa moist Neck: Supple, no adenopathy Chest: No wheezes or rhonchi Cardiac: S1S2, no apparent murmur Abdomen: BS normal, obese, non-tender Extremities: Trace edema Neuro: A&O, cranial nerves symmetric, motor strength and coordination seem normal IVs and Medications Medications Reviewed: Medications were reviewed in detail Lab and Diagnostics Result Diagram: 09/06/16 0259 09/08/16 0220 X-Rays, CTs and MRIs PROCEDURE: X-RAY CHEST ONE VIEW, PORTABLE ([id number]) IMPRESSION: No acute cardiopulmonary disease. Mild diffuse pulmonary interstitial prominence. Dictated by: Glory Hoang M.D. on 09/02/2016 at 11:43 PROCEDURE: X-RAY CHEST, TWO VIEWS ([id number]) IMPRESSION: Bibasilar air space opacities suspicious for aspiration or pneumonia. Dictated by: Fred Mcduffie RRA Interpreted: Mary Villalobos MD on 09/06/2016 at 10:39 . 12-lead ECG ECG, no ST segment changes. Q waves in the septal leads and inferior leads. Cardiac Echo Impressions Echocardiogram Report Name: ROXIE GENTILE EStudy Date: 09/03/2016 Height: 65 in Hospital Exam Location: [facility] Weight: 275 lb Gender: Male BSA: 2.3 m2 : 1950 Age: 66 yrs BP: 153/88 mmHg Reason For Study: Dyspnea Ordering Physician: Performed By: Andie Gregg Referring Physician: [facility] Interpretation Summary 1) Mild concentric left ventricular hypertrophy with normal size, wall motion, and systolic function (EF 65-70%). 2) Mildly dilated right ventricle with mildly reduced function. The distal free wall of the right ventricle appears hypokinetic, which could be pham sign that is seen in pulmonary embolism but pulmonary pressures are not elevated on this Echo. Correlate clinically. 3) Valves not well visualized but no significant valvular abnormalities noted. 4) High normal pulmonary artery pressures, estimated systolic pulmonary pressure of 34mmHg. 5) No prior Echo available for comparison. Procedure: A two-dimensional transthoracic echocardiogram with color flow and Doppler was performed. The study quality was technically difficult. There is no prior echocardiogram noted for this patient. A contrast injection of Definity was performed to improve assessment of LV function. The patient did well with the contrast. The patient was in normal sinus rhythm during the exam. Left Ventricle: The left ventricle is normal in size. There is mild concentric left ventricular hypertrophy. The ejection fraction is estimated to be 65-70%. There are no obvious focal wall motion abnormalities noted but poor endocardial definition reduces the sensitivity for the detection of such. Assessment of diastolic parameters indicates a relaxation abnormality of the left ventricle, consistent with normal filling pressures. Right Ventricle: The right ventricle is mildly dilated. Right ventricular systolic function is mildly reduced. Atria: Both atria are normal in size. Mitral Valve: The mitral valve is grossly normal. Aortic Valve: The aortic valve is grossly normal. There is no aortic valve stenosis. No aortic regurgitation is present. Tricuspid Valve: The tricuspid valve is not well visualized, but is grossly normal. There is a trace or physiologic amount of tricuspid regurgitation. The right ventricular systolic pressure is estimated at 34 mmHg assuming a right atrial pressure of 3 mm Hg. Pulmonic Valve: The pulmonic valve is not well visualized. Great Vessels: The aortic root is normal size. The ascending aorta is at the upper limits of normal in size. The IVC is of normal diameter and collapses greater than 50% with a sniff. This suggests a low right atrial pressure of 3 mm Hg. Pericardium/ Pleura There is no pericardial effusion. MMode/2D Measurements & Calculations LVIDd: 4.2 cm RA long axis Ao root diam LVIDs: 2.5 cm LA A2 area: 15.5 cm FS: 39.8 % LA A4 area: 19.2 cm RA area asc Aorta EPSS: 0.62 cm LA length (vol): 5.7 cm Diam: 3.8 cm IVSd: 1.1 cm LA vol: 44.3 ml : 18.1 cm LVPWd: 1.0 cm LA vol index RA vol: 46.4 ml RA : 20.5 mm2 IVC diam: 1.4 cm LV herrera. diameter/BSA LV sys. diameter/BSA RVD1 (basal) TAPSE: 2.3 cm (cm/m^2): 1.8 (cm/m^2): 1.1 Doppler Measurements & Calculations Ao V2 max MV E max gilbert MV E/A: 0.51 TR max gilbert : 142.1 cm/sec : 44.4 cm/sec Med Peak E' Gilbert : 280.3 cm/sec Ao max P.1 mmHgMV A max gilbert TR max PG Ao mean PG : 87.4 cm/sec E/E' med: 9.2 : 31.4 mmHg MV P1/2t: 92.2 msec MV A dur: 0.13 sec PA V2 max LVOT Max Gilbert : 100.8 cm/sec : 122.8 cm/sec PA mean PG sev ratio: 0.87 PA Accel Time : 0.10 sec MV dec time MV P1/2t max gilbert Ao V2 mean LV V1 max PG : 0.31 sec : 107.8 cm/sec Ao V2 VTI: 31.9 cm LV V1 VTI: 27.6 cm MVA(P1/2t): 2.4 cm2 PA V2 mean : 65.4 cm/sec Reading Physician:02:20 PM Assessment & Plan Acute and/or high-risk problems: #. Acute respiratory failure with hypoxia, POA. Pain is supplemental oxygen as needed. Secondary to COPD exacerbation, CHF, SRIRAM and or possible pneumonia. Metabolic alkalosis suggests chronic CO2 retention. COPD versus SRIRAM. Echocardiogram suggests acute on chronic diastolic CHF. BNP elevated at 7362 on admission. - albuterol every 6 hours and every 2 hours when necessary. - Treated for pneumonia, CHF and COPD exacerbation - O2 sats be between 88 and 92%. - Assess for home O2 therapy - Explore possibility of discharging him on home BPAP in light of his CO2 retention #. Pneumonia, acute, POA. Procalcitonin elevated at 0.11. Initial chest x-ray was unremarkable at subsequently with bibasilar infiltrates. Febrile to 38.4 on 09/05. - Completed 5 days of Ceftriaxone and azithromycin for community-acquired pneumonia. - Discontinue antibiotics #. Hypoxic respiratory failure due to COPD, acute on chronic. Mild wheezing noted on admission. History of lung disease unclear. Possibly COPD with obesity restrictive disease with SRIRAM. - Glucocorticoid burst 5 days - Discontinue prednisone - Continue Bronchodilators #. Acute on chronic diastolic CHF. Improved diuresis with IV Lasix 80 mg twice a day on 08/10, metolazone boost - Reduce Lasix to maintenance dose of 80 mg once daily #. Diabetes 2, POA. Usual regimen is Lantus 65 at bedtime and lispro 18 before meals plus correctional. Glucose remains above goal for inpatient care. He shows relative hypoglycemia after overnight fasting. Daytime hyperglycemia - he needs less Lantus and more daytime insulin. - Reduce Lantus 60 units bedtime to 50 - Increased nutritional 10-14 units with high-dose correctional - 4 times a day capillary blood glucose - Glucose control goals: Random less than 180, fasting less than 140, none less than 70 # SRIRAM, present on admission, previously untreated - Patient has been using BiPAP while here at night. - O2 saturation monitor at nighttime. - Respiratory therapy consult regarding home BPAP support #. Obesity, POA. - Physical therapy consultation to assist with mobilization. - Continue obesity related nursing care #. Acute kidney injury, CKD stage III. ANTONETTE. Serum creatinine 1.5 on admission. Elevated to 1.85. Likely cardiorenal. - Daily BMP Resolving, stable and/or chronic problems: #. Possible NSTEMI, POA. Troponins minimally elevated on admission at 0.02, 0.01. There is no clear history of coronary artery disease. His EKG does have septal Q waves consistent with possible previous cardiovascular events. Echocardiogram did not show any focal abnormalities. Overall picture seems primarily respiratory with troponin elevation due to acute on chronic diastolic CHF cardiac strain. - Follow clinically at present #. One positive blood culture, coag negative Staphylococcus, which may represent contaminant versus septicemia pending on following cultures. As when blood cultures negative. - No change antibiotics. #. Hyperkalemia, not present on admission. Currently resolved but we will continue to monitor. Status: Patient is full resuscitation in contrast to the ED note and this was verified. Disposition: Anticipate 1 more days of even for multifactorial acute on chronic respiratory failure. Likely home on 08/12 with home O2 arrangements. VTE Prophylaxis: Sub-Q Heparin (Unfractionated) Resuscitation Status: CPR: Attempt Resuscitation Time spent 35 minutes spent in patient assessment in care coordination on the unit Panda Doan MD Sep 08, 2016 12:11
--- NOTE | 2016-09-08 14:29 | NUR ---
Social Work Note: Readiness for Discharge Data& Assessment: Per pt is getting closer to being medically ready for discharge. SW met with pt at bedside and also spoke with pt via phone call to confirm discharge plan and assess for any unmet needs. Pt is anxious to get home and is hoping to be discharged tomorrow. Pt is also hoping pt will be medically ready for discharge soon and was curious about the process of obtaining oxygen for at home. SW explained that RT will evaluate pt, make final recommendations and arrange home oxygen prior to pt discharge. PT has cleared pt to return home and is ambulating 100+ ft with his cane. Pt to transport pt home when medically ready. Pt and pt deny any other needs at this time. SW to continue to follow if any needs arise. Plan: Anticipated discharge home via POV with home oxygen arranged by RT when medically ready. Pt and pt deny any other needs at this time. SW to continue to follow if any needs arise. ADITYA Ingram Addendum: 09/08/16 at 1527 by BOWEN GRAVES Per request, NAVID inquired about [employer] Coverage under pt Medicare. NAVID contacted Avani with [employer] and faxed facesheet with recent clinicals per her request. Per Avani, RT has already contacted them regarding pt. ADITYA Ingram
--- NOTE | 2016-09-08 14:55 | NUR ---
Assumed pt care Assumed pt care at approximately 1440. Pt states he is feeling anxious. Recommended easy listening music station on TV. Pt refused. Pt stated he needed medication. Assured pt MD would be notified. Notified . assessing pt. Care continues.
--- NOTE | 2016-09-08 18:14 | NUR ---
RA at rest Sp02 75%. Placed on 6lpm NC to keep Sp02 88-92%
[2016-09-08] MEDS: Insulin GLARgine 100 Unit/mL Syringe SUBQ SCH (21:10)
[2016-09-09] VITALS (7 sets, daily range): BP systolic 151–172; BP diastolic 84–115; PULSE 73–89; RESP 18–24; O2SAT 91–95
[2016-09-09] MEDS: Heparin 5,000 Unit/mL Inj SUBQ SCH ×2 (01:06→08:10)
[2016-09-09] MEDS: Albuterol 2.5 mg/3 mL Inhalation Solution NEB SCH ×3 (02:57→13:18)
--- NOTE | 2016-09-09 07:26 | NUR ---
Rest/Respiratory/BP Pt was able to rest during the shift foreman. Pt remained on the BiPap with FiO2 35% for most of the shift foreman. BiPap was only removed when pt needed to take oral medications and PO fluid intake. Pt's BP remained hypertensive but would fluctuate SBP [id number].
[2016-09-09] MEDS: Brimonidine 0.2% 5 mL Ophthalmic Solution BOTH_EYES SCH ×2 (08:10→14:01)
[2016-09-09] MEDS: Furosemide 10 mg/mL 4 mL Inj IVPUSH SCH (08:11)
[2016-09-09] MEDS: Nystatin 100,000 Unit/Gm 15 Gm Powder TOPICAL SCH (08:11)
[2016-09-09] MEDS: Polyethylene Glycol (PEG) 17 Gm Powder PO SCH (08:12)
[2016-09-09] MEDS: Insulin LISPRO 300 Unit/3 mL Inj SUBQ SCH ×2 (08:42→12:45)
--- NOTE | 2016-09-09 08:44 | PCM.DIMED ---
Discharge Instructions Date of Service Sep 09, 2016 Dates of Hospitalization Sep 02, 2016 at 13:30 Discharge Diagnosis Discharge Diagnosis COPD; obesity hypoventilation syndrome; acute diastolic congestive heart failure ; community-acquired pneumonia; diabetes mellitus type II with poorly controlled hyperglycemia Medication Instructions You will continue on your usual medications. He will begin to use at home pressure support reasoning device whenever you are sleeping and as needed during the daytime. He will receive instructions on the use of this device. Diet Diabetic (he was strongly encouraged to lose weight which will help with your diabetes, obesity hypoventilation and heart problems.) Activity No restrictions Patient Instructions Follow-up plan He should contact the [facility] for a posthospitalization follow-up appointment within 1 week. Panda Doan MD Sep 09, 2016 08:44
--- NOTE | 2016-09-09 08:54 | PCM.DC.MED ---
Discharge Summary Date of Service Sep 09, 2016 Dates of Hospitalization Date of Hospital Admission Sep 02, 2016 at 13:30 Date of Discharge: Sep 09, 2016 Providers: Admitting Physician: Raymundo Lovell MD [facility] Attending Physician: Raymundo Lovell MD Diagnosis at Time of Discharge Diagnosis at Time of Discharge COPD; obesity hypoventilation syndrome; acute diastolic congestive heart failure ; community-acquired pneumonia; diabetes mellitus type II with poorly controlled hyperglycemia Procedures XRay, CTs & MRIs PROCEDURE: X-RAY CHEST ONE VIEW, PORTABLE ([id number]) IMPRESSION: No acute cardiopulmonary disease. Mild diffuse pulmonary interstitial prominence. Dictated by: Glory Hoang M.D. on 09/02/2016 at 11:43 PROCEDURE: X-RAY CHEST, TWO VIEWS ([id number]) IMPRESSION: Bibasilar air space opacities suspicious for aspiration or pneumonia. Dictated by: Fred Mcduffie RRA Interpreted: Mary Villalobos MD on 09/06/2016 at 10:39 . ECG 12 Lead ECG, no ST segment changes. Q waves in the septal leads and inferior leads. Cardiac Echo Impression Echocardiogram Report Name: ROXIE GENTILE Study Date: 09/03/2016 Interpretation Summary 1) Mild concentric left ventricular hypertrophy with normal size, wall motion, and systolic function (EF 65-70%). 2) Mildly dilated right ventricle with mildly reduced function. The distal free wall of the right ventricle appears hypokinetic, which could be pham sign that is seen in pulmonary embolism but pulmonary pressures are not elevated on this Echo. Correlate clinically. 3) Valves not well visualized but no significant valvular abnormalities noted. 4) High normal pulmonary artery pressures, estimated systolic pulmonary pressure of 34mmHg. 5) No prior Echo available for comparison. . Brief History History of Present Illness (per admission note): This is a 66-year-old gentleman with a history of COPD who does not take oxygen at home. He has been progressively short of breath over the last 4 weeks. He has had some minor rhinorrhea and dry cough. No orthopnea or chest pain. He has however had some edema of both legs evenly. Because of generalized fatigue and dyspnea on exertion the patient presented to the emergency room today. There he had evidence of acute hypoxia with saturations of 84% room air, as well as pulmonary edema on chest x-ray and a mildly elevated troponin. His EKG shows Q waves along the anterior leads however he denies any knowledge of CAD or heart attack. He is an insulin-dependent diabetic. No hemoptysis. No myalgia or arthralgia. Hospital Course #. Acute on chronic respiratory failure with hypoxia and hypercarbia, POA. Admission labs were consistent with chronic hypercarbic and hypoxic respiratory failure. Underlying deficit diagnosis is COPD and obesity hypoventilation syndrome. BiPAP will not be sufficient he requires home AVAP, for nocturnal use as well as daytime when resting. Echocardiogram suggests acute on chronic diastolic CHF. BNP elevated at 7362 on admission. This is deemed to be due to right heart failure related to SRIRAM and COPD. After inpatient diuresis, we will not continue outpatient diuretics. We expect heart function to improve with initiation of AVAP at home -Continue current pulmonary medications #. Pneumonia, acute, POA. Procalcitonin elevated at 0.11. Initial chest x-ray was unremarkable at subsequently with bibasilar infiltrates. Febrile to 38.4 on 09/05. - Completed 5 days of Ceftriaxone and azithromycin for community-acquired pneumonia. #. Hypoxic respiratory failure due to COPD, acute on chronic. Mild wheezing noted on admission. History of lung disease unclear. Possibly COPD with obesity restrictive disease with SRIRAM. - Glucocorticoid burst 5 days completed - Continue Bronchodilators #. Acute on chronic diastolic CHF. Improved diuresis with IV Lasix 80 mg twice a day on 08/10, metolazone boost - Follow clinically #. Diabetes 2, POA. Usual regimen is Lantus 65 at bedtime and lispro 18 before meals plus correctional. Glucose remains above goal for inpatient care. He shows relative hypoglycemia after overnight fasting on his current dose of Lantus. Daytime hyperglycemia - he needs more daytime insulin. - Returned to outpatient insulin regimen; adjustments in regimen are deferred to his primary care doctor # SRIRAM, present on admission, previously untreated -Trilogy unit ordered for home use #. Obesity, POA. - The patient was strongly advised to lose weight #. Acute kidney injury, CKD stage III. ANTONETTE. Serum creatinine 1.5 on admission. Elevated to 1.85. Return to baseline prior to discharge 1.48. #. Possible NSTEMI, POA. Troponins minimally elevated on admission at 0.02, 0.01. There is no clear history of coronary artery disease. His EKG does have septal Q waves consistent with possible previous cardiovascular events. Echocardiogram did not show any focal abnormalities. Overall picture seems primarily respiratory with troponin elevation due to acute on chronic diastolic CHF cardiac strain. - Follow clinically #. One positive blood culture, coag negative Staphylococcus, which may represent contaminant. Subsequent blood cultures negative. #. Hyperkalemia, not present on admission. Resolved . Exam Vital Signs (Last) Date Time Temp Pulse Resp B/P Pulse Ox O2 Delivery O2 Flow Rate FiO2 09/09/16 07:40 37.0 82 21 159/84 91 Nasal Cannula 6.00 09/09/16 02:57 35 Exam General: Obese elderly gentleman sitting in chair HEENT: sclerae anicteric, oral mucosa moist Neck: Supple, no adenopathy Chest: Generally clear, No wheezes or rhonchi Cardiac: S1S2, no murmur Abdomen: BS normal, obese, non-tender Extremities: Trace edema; mottled hypopigmentation Neuro: A&O, cranial nerves symmetric, motor strength and coordination seem normal Arterial blood gas: DateTimeAnalyzed 03:49:00 -_ pH ____7.248 - 7.350 7.450 pCO2 ___88.4__ -mmHg 35.0 45.0 pO2 ___69.7__ -mmHg 69.0 116 HCO3- ___37.2__ -mmol/L 22.0 26.0 ABE ____5.3__ -mmol/L -2.0 2.0 tHb ___17.6__ -g/dL O2Hb ___89.1__ -% COHb ____1.3__ -% MetHb ____0.9__ -% sO2 ___91.1__ -% 25.0 FIO2 ___21.0__ -% Drawn By MD - Test 09/02/16 11:15 09/02/16 15:00 09/02/16 16:22 09/03/16 02:40 Hemoglobin A1c 9.7% (4.8-5.6) Pro-B-Type Natriuretic Peptide 7362pg/mL (0-376) Troponin T 0.012ug/L (0.0-0.011) Urine Color Yellow (YELLOW) Urine Appearance Clear (CLEAR,HAZY) Urine pH 5.5 (5.0-8.0) Urine Specific [place] 1.015 (1.003-1.035) Urine Protein 30mg/dL (NEG,TRACE) Urine Glucose (UA) 500mg/dL (NEGATIVE) Urine Ketones Negativemg/dL (NEGATIVE) Urine Occult Blood Small (NEGATIVE) Urine Nitrite Negative (NEGATIVE) Urine Bilirubin Negative (NEGATIVE) Urine Urobilinogen Normalmg/dL (NORMAL) Urine Leukocyte Esterase Negative (NEGATIVE) Urine RBC 0-2/hpf (0-2) Urine WBC 0-5/hpf (0-5) Urine Epithelial Cells Few/hpf (NONE-MOD) Urine Crystals None seen (NONE SEEN) Urine Bacteria Few/hpf (NONE-FEW) Urine Hyaline Casts None/lpf (NONE) Urine Granular Casts None seen (NONE SEEN) Urine Waxy Casts None seen (NONE SEEN) Urine Red Blood Cell Casts None seen (NONE SEEN) Urine White Blood Cell Casts None seen (NONE SEEN) Urine Mucus None seen (None Seen) Urine Trichomonas None seen (NONE SEEN) Urine Yeast None (NONE SEEN) Urinalysis Comment None Urine Culture Reflexed Not indicated Triglycerides Level 117mg/dL (0-149) Cholesterol Level 192mg/dL (100-199) LDL Cholesterol, Calculated 137.600mg/dL (0-99) VLDL Cholesterol 23.400mg/dL HDL Cholesterol 31mg/dL (>39) Cholesterol/HDL Ratio 6.19 (0.0-4.4) Test 09/05/16 04:00 09/06/16 02:59 09/06/16 11:25 09/08/16 02:20 Hold [employer] Top Tube Received (Received) White Blood Count 6.8th/mm3 (3.8-10.1) Red Blood Count 5.54mil/mm3 (4.40-5.80) Hemoglobin 16.8g/dL (13.8-17.2) Hematocrit 54.1% (41.0-50.0) Mean Corpuscular Volume 97.7fL (81-100) Mean Corpuscular Hemoglobin 30.3pg (27.0-35.0) Mean Corpuscular Hemoglobin Concent 31.1% (32.0-37.0) Red Cell Distribution Width 16.3% (12.3-15.4) Platelet Count 172bil/L (150-400) Neutrophils (%) (Auto) 52.1% (40-74) Lymphocytes (%) (Auto) 27.4% (14-46) Monocytes (%) (Auto) 20.0% (4-12) Eosinophils (%) (Auto) 0.1% (0-5) Basophils (%) (Auto) 0.1% (0-3) Magnesium Level 2.2mg/dL (1.6-2.6) Total Bilirubin 0.4mg/dL (0.0-1.2) Aspartate Amino Transf (AST/SGOT) 22U/L (0-50) Alanine Aminotransferase (ALT/SGPT) 16U/L (0-44) Alkaline Phosphatase 117U/L (25-160) Total Protein 5.8g/dL (6.4-8.4) Albumin 3.2g/dL (3.4-5.0) Procalcitonin 0.13ng/mL (0.00-0.08) Test 09/09/16 02:48 Sodium Level 136mEq/L (134-144) Potassium Level 4.1mEq/L (3.5-5.2) Chloride Level 85mEq/L (97-108) Carbon Dioxide Level 34mmol/L (18-29) Blood Urea Nitrogen 55mg/dL (8-27) Creatinine 1.48mg/dL (0.76-1.27) Estimat Glomerular Filtration Rate 50mL/min (>59) Glucose Level 129mg/dL (60-99) Calcium Level 9.6mg/dL (8.5-10.1) Discharge Medications Discharge Medications Brimonidine Tartrate (Brimonidine 0.2% Oph Soln) 5 Ml Drops 1 DROP BOTH_EYES TID (Reported) Fluocinonide 0.05% Oint (Fluocinonide 0.05% Oint) 15 Gm Oint...g. 1 APPLIC TOPICAL BID (Reported) Fluoxetine (Fluoxetine) 20 Mg Capsule 20 MG PO DAILY (Reported) Gabapentin (Gabapentin) 300 Mg Capsule 300 MG PO BID (Reported) Insulin Aspart (NovoLOG U-100 Pen) 100 Unit/Ml Insuln.pen 18 UNITS SUBQ TIDWM ( Reported) Insulin Glargine (Lantus U100 Insulin Vial) 100 Unit/Ml Vial 65 UNIT SUBQ HS ( Reported) Ipratropium [place] (Atrovent HFA) 200 Puff/12.9 Gm Inhaler 2 PUFF INH BID ( Reported) Lisinopril (Lisinopril) 40 Mg Tablet 40 MG PO DAILY (Reported) Loratadine (Claritin) 10 Mg Capsule 10 MG PO DAILY (Reported) Metoprolol Succinate ER (Metoprolol Succinate ER) 100 Mg Tab.er.24h 150 MG PO DAILY (Reported) Simvastatin (Simvastatin) 40 Mg Tablet 40 MG PO HS (Reported) Spironolactone (Spironolactone) 50 Mg Tablet 50 MG PO DAILY (Reported) As needed Albuterol HFA (Proair HFA) 8.5 Gm Hfa.aer.ad 1-2 PUFFS INHALATION Q4H PRN PRN For Shortness of Breath (Reported) Cetirizine HCl (Zyrtec) 10 Mg Capsule 10 MG PO DAILY PRN PRN allergies (Reported ) Temazepam (Temazepam) 15 Mg Capsule 15 MG PO HS PRN PRN For Insomnia (Reported) Tramadol (Tramadol) 50 Mg Tablet 50 MG PO TID PRN PRN For Pain (Reported) Additional med instructions You will continue on your usual medications. He will begin to use at home pressure support reasoning device whenever you are sleeping and as needed during the daytime. He will receive instructions on the use of this device. Followup Plan Follow-up plan He should contact [facility] for a posthospitalization follow-up appointment within 1 week. Discharge Diet: Diabetic (he was strongly encouraged to lose weight which will help with your diabetes, obesity hypoventilation and heart problems.) Discharge Activity: No restrictions Time spent 35 minutes copies to: [facility] Panda Doan MD Sep 09, 2016 08:54
[2016-09-09] MEDS: Tiotropium 18mcg/Cap 5 Capsule Inhaler Kit INHALATION SCH (09:48)
--- NOTE | 2016-09-09 14:40 | NUR ---
Discharged Pt. discharged to home with . Pt. took all his belongings from room [address] [facility]. Pt. was given educational material on CHF and COPD. [facility]. Pts. stated she would call and set up the appointment. I called [facility] to let them know that Pt. left the hospital. Pt. was taken down in wheel chair with portable oxygen tank at 6L NC.
--- NOTE | 2016-09-09 14:48 | NUR ---
Social Work Note: Discharge Data& Assessment: EMR reviewed. Per pt is medically ready to discharge home via POV. Pt was discharged from PT service as he was at his baseline. Pt requires Trilogy machine for respiratory status. [facility] obtained authorization and is meeting pt at home to set up Trilogy machine. [facility] Liaison contacted [place] to notify them of pt discharge as well for oxygen needs at home. SW met with pt and pt at bedside to discuss discharge plan and assess for any unmet needs. Pt and pt deny any other needs. Pt transporting pt home. No other discharge needs identified. All updated and agreeable to plan. Plan: Per pt is medically ready to discharge home via POV with Trilogy machine though [facility] and Oxygen through [place]. Pt and pt deny any other needs. No other discharge needs identified. All updated and agreeable to plan. ADITYA Ingram
== END 2016-09-09 14:43 | disposition home or self-care (01) | DRG 189 ==
LOC: SED 10:32 → PCC 13:30
PROVIDERS: ADMIT Hospitalist; ATTEND Hospitalist
PROC: 4A033B1 Measurement of Arterial Pressure, Peripheral, Percutaneous Approach (ICD-10-PCS; 2016-09-02)
PROC: 5A09557 Assistance with Respiratory Ventilation, Greater than 96 Consecutive Hours, Continuous Positive Airway Pressure (ICD-10-PCS; principal; 2016-09-09)
DX: J96.21 Acute and chronic respiratory failure with hypoxia (principal); I50.33 Acute on chronic diastolic (congestive) heart failure; J18.9 Pneumonia, unspecified organism; E66.2 Morbid (severe) obesity with alveolar hypoventilation; Z68.41 Body mass index [BMI] 40.0-44.9, adult; N17.9 Acute kidney failure, unspecified; J96.22 Acute and chronic respiratory failure with hypercapnia; Z66 Do not resuscitate; H40.9 Unspecified glaucoma; E87.5 Hyperkalemia; E11.65 Type 2 diabetes mellitus with hyperglycemia; I12.9 Hypertensive chronic kidney disease with stage 1 through stage 4 chronic kidney disease, or unspecified chronic kidney disease; N18.3 Chronic kidney disease, stage 3 (moderate); Z79.4 Long term (current) use of insulin; Z87.891 Personal history of nicotine dependence